=== PATIENT | male | born 1930 | race Caucasian/White ===

== ENCOUNTER 2016-11-22 16:51 | Emergency (ER) | payer OTHER ==
[~2016-11-22] VITALS: Ht 165.1 cm; Wt 63.5 kg
[~2016-11-22 16:51] MED LIST: ASPI-524 PO; ATEN-41 PO; BUPROPRION PO; FINA5TAB3 PO; FURO-149 PO; GABA300S PO; GLIPIZIDE PO; HYDR-1189 PO; LORA-258 PO; LOVA40TA75 PO; METR500T PO; OMEP20CA10 PO; TAMS-11 PO; TRAM50TA92 PO
[2016-11-22 17:09] VITALS: BP_SYST 162
[2016-11-22] MEDS ORDERED: LIDOCAINE 1% 10 MG/ML, 20 ML MDV INJ ONE (17:30)
[2016-11-22 18:07] VITALS: BP_SYST 143
== END 2016-11-22 18:07 | disposition home or self-care (01) ==
LOC: SED 16:51
DX: M71.522 Other bursitis, not elsewhere classified, left elbow (principal); E11.9 Type 2 diabetes mellitus without complications; I10 Essential (primary) hypertension; Z88.0 Allergy status to penicillin; Z88.5 Allergy status to narcotic agent; Z88.8 Allergy status to other drugs, medicaments and biological substances; Z85.46 Personal history of malignant neoplasm of prostate; Z95.2 Presence of prosthetic heart valve; Z79.82 Long term (current) use of aspirin
CPT/HCPCS: 20605; 99284; J2001

== ENCOUNTER 2017-11-15 07:59 | Emergency (ER) | payer OTHER ==
[~2017-11-15] VITALS: Ht 165.1 cm; Wt 63.5 kg
[2017-11-15 08:11] VITALS: BP_SYST 118
[2017-11-15] MEDS ORDERED: ACETAMINOPHEN 500 MG TABLET PO ONE (09:30)
[2017-11-15 10:02] VITALS: BP_SYST 149
== END 2017-11-15 10:02 | disposition home or self-care (01) ==
LOC: SED 07:59
DX: S01.01XA Laceration without foreign body of scalp, initial encounter (principal); S20.212A Contusion of left front wall of thorax, initial encounter; E11.9 Type 2 diabetes mellitus without complications; I10 Essential (primary) hypertension; Z86.79 Personal history of other diseases of the circulatory system; Z85.46 Personal history of malignant neoplasm of prostate; Z88.0 Allergy status to penicillin; Z88.8 Allergy status to other drugs, medicaments and biological substances; Z79.899 Other long term (current) drug therapy; W16.211A Fall in (into) filled bathtub causing drowning and submersion, initial encounter; Y93.E1 Activity, personal bathing and showering; Y92.091 Bathroom in other non-institutional residence as the place of occurrence of the external cause; Y99.8 Other external cause status
CPT/HCPCS: 70450-TC; 71100; 99284

== ENCOUNTER 2017-12-24 20:41 | Emergency (ER) | payer OTHER ==
[~2017-12-24] VITALS: Ht 170.2 cm; Wt 83.5 kg
[2017-12-24 20:48] VITALS: BP_SYST 110
[2017-12-24] MEDS ORDERED: NACL 0.9% 1,000 ML IV ONE (21:00)
[2017-12-24] MEDS ORDERED: DIPH-TET-PERTUS Vaccine 0.5 ML VIAL (ADACEL) I.M. ONE (21:00)
[2017-12-24 21:18] LABS: BASOPHILS % (AUTO) 0.7 % (0.0-2.0); EOSINOPHILS # (AUTO) 0.2 K/uL (0.0-0.4); EOSINOPHILS % (AUTO) 2.9 % (0.0-4.0); HEMATOCRIT 36.4 % (36-54); HEMOGLOBIN 11.9 g/dL (14.0-18.0); LYMPHOCYTES # (AUTO) 1.5 K/uL (1.0-5.5); LYMPHOCYTES % (AUTO) 27.1 % (20.5-51.5); MEAN CORPUSCULAR HEMOGLOBIN 31 pg (27-31); MEAN CORPUSCULAR HGB CONC 33 % (32-36); MEAN CORPUSCULAR VOLUME 94 fL (79.0-98.0); MONOCYTES # (AUTO) 0.4 K/uL (0.0-1.0); MONOCYTES % (AUTO) 7.7 % (1.7-9.3); NEUTROPHILS # (AUTO) 3.5 K/uL (1.8-7.7); NEUTROPHILS % (AUTO) 61.6 % (40.0-70.0); PLATELET COUNT (AUTO) 148 K/uL (130-430); RED BLOOD CELL COUNT(AUTO) 3.88 MIL/uL (4.2-6.2); RED CELL DISTRIBUTION WIDTH 12.5 % (9.0-15.0); WHITE BLOOD COUNT (AUTO) 5.6 K/uL (4.8-10.8)
[2017-12-24] MEDS ORDERED: DIPH-TET Vacc 0.5 ML VIAL I.M. ONE (21:30)
[2017-12-24 21:39] LABS: ANION GAP 7 (5-15); CALCIUM 8.4 mg/dL (8.4-11.0); CHLORIDE 102 mmol/L (98-107); CREATININE 1.54 mg/dL (0.55-1.30); GLUCOSE 88 mg/dL (70-99); POTASSIUM 3.9 mmol/L (3.5-5.1); SODIUM SERUM 137 mmol/L (136-145); UREA NITROGEN, BLOOD 18 mg/dL (8-21)
[2017-12-24 21:43] LABS: PROTHROMBIN TIME 10.2 SECS (9.5-12.5)
[2017-12-24 21:44] LABS: ALANINE AMINOTRANSFERASE 19 U/L (12-78); ALBUMIN 3.7 g/dL (3.4-4.8); ASPARTATE AMINOTRANSFERASE 13 U/L (10-37); TOTAL BILIRUBIN 0.6 mg/dL (0.0-1.0)
[2017-12-24 21:46] LABS: ALCOHOL, BLOOD < 3 mg/dL (<10)
[2017-12-24 23:09] LABS: BILIRUBIN,URINE NEGATIVE (NEGATIVE); BLOOD, URINE NEGATIVE (NEGATIVE); CLARITY/URINE CLEAR (CLEAR); COLOR,URINE YELLOW (YELLOW); GLUCOSE,URINE NEGATIVE (NEGATIVE); KETONES,URINE NEGATIVE (NEGATIVE); LEUKOCYTE ESTERASE ,URINE NEGATIVE (NEGATIVE); NITRITE, URINE NEGATIVE (NEGATIVE); PROTEIN URINE NEGATIVE (NEGATIVE); UROBILINOGEN,URINE 0.2 (0.2-1.0)
[2017-12-24 23:26] LABS: BENZODIAZEPINE, URINE POSITIVE (NEG <=150); OPIATE, URINE POSITIVE (NEG <=100)
[2017-12-24 23:27] LABS: BARBITURATE, URINE NEGATIVE (NEG <=200); CANNABINOID, URINE NEGATIVE (NEG <=50); COCAINE, URINE NEGATIVE (NEG <=150); METHAMPHETAMINES SCREEN,URINE NEGATIVE (NEG <=500); PHENCYCLIDINE SCREEN,URINE NEGATIVE (NEG <=25); UR TRICYCLIC ANTIDEPRESSANTS NEGATIVE (NEG <=300); URINE AMPHETAMINE NEGATIVE (NEG <=500); URINE METHADONE NEGATIVE (NEG <=200); URINE OXYCODONE SCREEN NEGATIVE (NEG <=100); URINE PROPOXYPHENE SCREEN NEGATIVE (NEG <=300)
[2017-12-24 23:48] VITALS: BP_SYST 121
== END 2017-12-24 23:48 | disposition home or self-care (01) ==
LOC: SED 20:41
DX: S50.312A Abrasion of left elbow, initial encounter (principal); R53.1 Weakness; E78.5 Hyperlipidemia, unspecified; Z85.46 Personal history of malignant neoplasm of prostate; E11.9 Type 2 diabetes mellitus without complications; I10 Essential (primary) hypertension; Z86.79 Personal history of other diseases of the circulatory system; Z88.5 Allergy status to narcotic agent; Z88.0 Allergy status to penicillin; Z88.8 Allergy status to other drugs, medicaments and biological substances; Z79.899 Other long term (current) drug therapy; W19.XXXA Unspecified fall, initial encounter; Y93.89 Activity, other specified; Y92.89 Other specified places as the place of occurrence of the external cause; Y99.8 Other external cause status
CPT/HCPCS: 36415; 70450; 71045; 80053; 80307; 81003; 84484; 85025; 85610; 85730; 90471; 90714; 93005; 99285; G0482; J7030

== ENCOUNTER 2018-06-03 14:04 | Emergency (ER) | payer OTHER ==
[~2018-06-03] VITALS: Ht 172.7 cm; Wt 79.8 kg
[2018-06-03 14:06] VITALS: BP_SYST 161
[2018-06-03 14:31] LABS: BASOPHILS % (AUTO) 0.5 % (0.0-2.0); EOSINOPHILS % (AUTO) 0.1 % (0.0-4.0); HEMATOCRIT 36.8 % (36-54); HEMOGLOBIN 12.4 g/dL (14.0-18.0); LYMPHOCYTES # (AUTO) 1.1 K/uL (1.0-5.5); LYMPHOCYTES % (AUTO) 12.2 % (20.5-51.5); MEAN CORPUSCULAR HEMOGLOBIN 32 pg (27-31); MEAN CORPUSCULAR HGB CONC 34 % (32-36); MEAN CORPUSCULAR VOLUME 95 fL (79.0-98.0); MONOCYTES # (AUTO) 0.5 K/uL (0.0-1.0); MONOCYTES % (AUTO) 5.5 % (1.7-9.3); NEUTROPHILS # (AUTO) 7.6 K/uL (1.8-7.7); NEUTROPHILS % (AUTO) 81.7 % (40.0-70.0); PLATELET COUNT (AUTO) 213 K/uL (130-430); RED BLOOD CELL COUNT(AUTO) 3.86 MIL/uL (4.2-6.2); RED CELL DISTRIBUTION WIDTH 12.4 % (9.0-15.0); WHITE BLOOD COUNT (AUTO) 9.2 K/uL (4.8-10.8)
[2018-06-03 14:43] LABS: PROTHROMBIN TIME 10.7 SECS (9.5-12.5)
[2018-06-03 14:46] LABS: ANION GAP 11 (5-15); CALCIUM 8.6 mg/dL (8.4-11.0); CHLORIDE 99 mmol/L (98-107); CREATININE 1.34 mg/dL (0.55-1.30); GLUCOSE 136 mg/dL (70-99); POTASSIUM 3.4 mmol/L (3.5-5.1); SODIUM SERUM 137 mmol/L (136-145); UREA NITROGEN, BLOOD 17 mg/dL (8-21)
[2018-06-03 14:52] LABS: ALANINE AMINOTRANSFERASE 20 U/L (12-78); ALBUMIN 3.7 g/dL (3.4-4.8); ASPARTATE AMINOTRANSFERASE 17 U/L (10-37); TOTAL BILIRUBIN 0.9 mg/dL (0.0-1.0)
[2018-06-03 15:04] LABS: BILIRUBIN,URINE NEGATIVE (NEGATIVE); BLOOD, URINE NEGATIVE (NEGATIVE); CLARITY/URINE CLEAR (CLEAR); COLOR,URINE YELLOW (YELLOW); GLUCOSE,URINE NEGATIVE (NEGATIVE); KETONES,URINE NEGATIVE (NEGATIVE); LEUKOCYTE ESTERASE ,URINE NEGATIVE (NEGATIVE); NITRITE, URINE NEGATIVE (NEGATIVE); PROTEIN URINE NEGATIVE (NEGATIVE); UROBILINOGEN,URINE 0.2 (0.2-1.0)
[2018-06-03 18:37] VITALS: BP_SYST 179
== END 2018-06-03 18:37 | disposition home or self-care (01) ==
LOC: SED 14:04
DX: R41.82 Altered mental status, unspecified (principal); E11.9 Type 2 diabetes mellitus without complications; E78.5 Hyperlipidemia, unspecified; I10 Essential (primary) hypertension; Z85.46 Personal history of malignant neoplasm of prostate; Z85.820 Personal history of malignant melanoma of skin; Z86.79 Personal history of other diseases of the circulatory system; Z95.1 Presence of aortocoronary bypass graft; Z88.0 Allergy status to penicillin; Z88.5 Allergy status to narcotic agent; Z88.8 Allergy status to other drugs, medicaments and biological substances; Z79.899 Other long term (current) drug therapy
CPT/HCPCS: 36415; 70450-TC; 71045; 80053; 81003; 83605; 84484; 85025; 85610-TC; 85730-TC; 87040-TC; 87086; 93005; 99284

== ENCOUNTER 2018-06-10 18:37 | Emergency (ER) | payer OTHER ==
[~2018-06-10] VITALS: Ht 172.7 cm; Wt 61.2 kg
[2018-06-10 18:41] VITALS: BP_SYST 137
[2018-06-10] MEDS ORDERED: NACL 0.9% 1,000 ML IV ONE (18:45)
[2018-06-10] MEDS ORDERED: ONDANSETRON HCL 4 MG/2 ML VIAL IVP ONE (18:45)
[2018-06-10] MEDS ORDERED: DICYCLOMINE HCL 20 MG/2 ML AMP IM ONE (18:45)
[2018-06-10 19:10] LABS: BASOPHILS % (AUTO) 0.5 % (0.0-2.0); EOSINOPHILS # (AUTO) 0.2 K/uL (0.0-0.4); EOSINOPHILS % (AUTO) 3.2 % (0.0-4.0); HEMATOCRIT 39.2 % (36-54); HEMOGLOBIN 13.1 g/dL (14.0-18.0); LYMPHOCYTES % (AUTO) 13.4 % (20.5-51.5); MEAN CORPUSCULAR HEMOGLOBIN 32 pg (27-31); MEAN CORPUSCULAR HGB CONC 33 % (32-36); MEAN CORPUSCULAR VOLUME 94 fL (79.0-98.0); MONOCYTES # (AUTO) 0.5 K/uL (0.0-1.0); NEUTROPHILS # (AUTO) 5.6 K/uL (1.8-7.7); NEUTROPHILS % (AUTO) 75.9 % (40.0-70.0); PLATELET COUNT (AUTO) 184 K/uL (130-430); RED BLOOD CELL COUNT(AUTO) 4.17 MIL/uL (4.2-6.2); RED CELL DISTRIBUTION WIDTH 12.6 % (9.0-15.0); WHITE BLOOD COUNT (AUTO) 7.3 K/uL (4.8-10.8)
[2018-06-10 19:20] LABS: ANION GAP 9 (5-15); CALCIUM 8.4 mg/dL (8.4-11.0); CHLORIDE 98 mmol/L (98-107); CREATININE 1.26 mg/dL (0.55-1.30); GLUCOSE 145 mg/dL (70-99); POTASSIUM 3.5 mmol/L (3.5-5.1); SODIUM SERUM 136 mmol/L (136-145); UREA NITROGEN, BLOOD 11 mg/dL (8-21)
[2018-06-10 19:24] LABS: ALANINE AMINOTRANSFERASE 19 U/L (12-78); ALBUMIN 3.9 g/dL (3.4-4.8); ASPARTATE AMINOTRANSFERASE 16 U/L (10-37); TOTAL BILIRUBIN 0.6 mg/dL (0.0-1.0)
[2018-06-10 19:32] LABS: BILIRUBIN,URINE NEGATIVE (NEGATIVE); BLOOD, URINE 3+ (NEGATIVE); CLARITY/URINE CLEAR (CLEAR); COLOR,URINE YELLOW (YELLOW); GLUCOSE,URINE NEGATIVE (NEGATIVE); KETONES,URINE NEGATIVE (NEGATIVE); LEUKOCYTE ESTERASE ,URINE NEGATIVE (NEGATIVE); NITRITE, URINE NEGATIVE (NEGATIVE); PROTEIN URINE NEGATIVE (NEGATIVE); UROBILINOGEN,URINE 0.2 (0.2-1.0)
[2018-06-10 19:39] LABS: BACTERIA,URINE RARE /HPF (None Seen); RBC,URINE 20-50 /HPF (0-3); WBC,URINE 0-3 /HPF (0-3)
[2018-06-10] MEDS ORDERED: HYDROcodone/ACETAMIN 5-325 MG TAB (NORCO/ VICODIN) PO ONE (22:00)
[2018-06-10] MEDS ORDERED: traMADol HCL HCL 50 MG TABLET (ULTRAM) PO ONE (22:00)
[2018-06-10 22:24] LABS: FREE T4 (FREE THYROXINE) 0.6 ng/dL (0.6-1.6); THYROID STIMULATING HORMONE 2.71 uIu/mL (0.34-4.82)
[2018-06-10] MEDS ORDERED: LORazepam 1 MG TABLET PO ONE (23:00)
[2018-06-10] MEDS ORDERED: PRAV40TA PO (23:26)
[2018-06-11 01:36] VITALS: BP_SYST 160
== END 2018-06-11 01:34 | disposition home or self-care (01) ==
LOC: SED 18:37
DX: R10.84 Generalized abdominal pain (principal); R19.7 Diarrhea, unspecified; F32.9 Major depressive disorder, single episode, unspecified; F41.9 Anxiety disorder, unspecified; K21.9 Gastro-esophageal reflux disease without esophagitis; E11.9 Type 2 diabetes mellitus without complications; I10 Essential (primary) hypertension; Z86.79 Personal history of other diseases of the circulatory system; Z85.46 Personal history of malignant neoplasm of prostate; Z85.820 Personal history of malignant melanoma of skin; Z88.0 Allergy status to penicillin; Z88.5 Allergy status to narcotic agent; Z88.8 Allergy status to other drugs, medicaments and biological substances; Z79.899 Other long term (current) drug therapy; Z86.19 Personal history of other infectious and parasitic diseases
CPT/HCPCS: 36415; 74176; 80053; 81000; 82272; 83605; 84439; 84443; 85025; 87040; 87086; 93005; 96361; 96372; 96374; 99284; J0500; J2405; J7030

== ENCOUNTER 2018-06-17 08:50 | Emergency (ER) | payer OTHER ==
[~2018-06-17] VITALS: Ht 167.6 cm; Wt 61.2 kg
[2018-06-17 08:50] VITALS: BP_SYST 159
[~2018-06-17 08:50] MED LIST changes: -FINA5TAB3 PO; -LOVA40TA75 PO; -METR500T PO; +PRAV40TA PO
[2018-06-17] MEDS: BACITRACIN 1 GM OINT TP ONE (09:30)
[2018-06-17] MEDS: NACL 0.9% 1,000 ML IV ONE (09:30)
[2018-06-17] MEDS: LIDOCAINE 1% 10 MG/ML, 20 ML MDV IJ ONE (09:30)
[2018-06-17] MEDS: ASPIRIN 81 MG TAB.CHEW PO ONE (09:30)
[2018-06-17 09:47] LABS: BASOPHILS % (AUTO) 0.5 % (0.0-2.0); EOSINOPHILS # (AUTO) 0.4 K/uL (0.0-0.4); EOSINOPHILS % (AUTO) 5.7 % (0.0-4.0); HEMATOCRIT 37.7 % (36-54); HEMOGLOBIN 12.3 g/dL (14.0-18.0); LYMPHOCYTES # (AUTO) 1.5 K/uL (1.0-5.5); LYMPHOCYTES % (AUTO) 23.3 % (20.5-51.5); MEAN CORPUSCULAR HEMOGLOBIN 31 pg (27-31); MEAN CORPUSCULAR HGB CONC 33 % (32-36); MEAN CORPUSCULAR VOLUME 95 fL (79.0-98.0); MONOCYTES # (AUTO) 0.6 K/uL (0.0-1.0); MONOCYTES % (AUTO) 8.8 % (1.7-9.3); NEUTROPHILS # (AUTO) 3.9 K/uL (1.8-7.7); NEUTROPHILS % (AUTO) 61.7 % (40.0-70.0); PLATELET COUNT (AUTO) 171 K/uL (130-430); RED BLOOD CELL COUNT(AUTO) 3.97 MIL/uL (4.2-6.2); WHITE BLOOD COUNT (AUTO) 6.4 K/uL (4.8-10.8)
[2018-06-17 09:56] LABS: ANION GAP 8 (5-15); CALCIUM 8.3 mg/dL (8.4-11.0); CHLORIDE 104 mmol/L (98-107); CREATININE 1.31 mg/dL (0.55-1.30); GLUCOSE 110 mg/dL (70-99); POTASSIUM 3.9 mmol/L (3.5-5.1); SODIUM SERUM 141 mmol/L (136-145); UREA NITROGEN, BLOOD 19 mg/dL (8-21)
[2018-06-17 09:59] LABS: PROTHROMBIN TIME 10.4 SECS (9.5-12.5)
[2018-06-17 10:00] LABS: ALANINE AMINOTRANSFERASE 19 U/L (12-78); ALBUMIN 3.6 g/dL (3.4-4.8); ASPARTATE AMINOTRANSFERASE 12 U/L (10-37); LIPASE 98 U/L (73-393); TOTAL BILIRUBIN 0.6 mg/dL (0.0-1.0)
[2018-06-17] MEDS: MORPHINE 4 MG/ML INJ. SYRINGE IVP ONE (10:24)
[2018-06-17 11:22] VITALS: BP_SYST 153
== END 2018-06-17 11:22 | disposition home or self-care (01) ==
LOC: SED 08:50
DX: S01.01XA Laceration without foreign body of scalp, initial encounter (principal); J45.909 Unspecified asthma, uncomplicated; K21.9 Gastro-esophageal reflux disease without esophagitis; E78.5 Hyperlipidemia, unspecified; E11.9 Type 2 diabetes mellitus without complications; I10 Essential (primary) hypertension; Z86.79 Personal history of other diseases of the circulatory system; Z85.820 Personal history of malignant melanoma of skin; Z85.46 Personal history of malignant neoplasm of prostate; Z88.0 Allergy status to penicillin; Z88.5 Allergy status to narcotic agent; Z88.8 Allergy status to other drugs, medicaments and biological substances; Z79.899 Other long term (current) drug therapy; W18.12XA Fall from or off toilet with subsequent striking against object, initial encounter; Y93.89 Activity, other specified; Y92.89 Other specified places as the place of occurrence of the external cause; Y99.8 Other external cause status
CPT/HCPCS: 12004; 36415; 70450; 71045; 80053; 82550; 83690; 84484; 85025; 85610; 85730; 93005; 96374; 99284; J2270; J7030

== ENCOUNTER 2018-06-20 22:54 | Inpatient (IN) | payer OTHER ==
[~2018-06-20] VITALS: Ht 167.6 cm; Wt 67.1 kg
[2018-06-20 22:54] VITALS: BP_SYST 163
--- NOTE | 2018-06-20 22:54 | NUR ---
Placed in room 8 . Placed on vp celebrity services, blood pressure machine and pulse oximeter. To gown for exam. Side rails up. Report given from DOMINIC Moreira.
--- NOTE | 2018-06-20 22:54 | NUR ---
Note jose a in ED - 06/21/18 at 0659 by [email or web address] Patient to [facility] 8 to [facility] for evaluation. Side rails up. Report given from DOMINIC Moreira.
--- NOTE | 2018-06-20 23:00 | NUR ---
Pt came into the ed for shaking, chills and vomiting. Pts daughter reports that he has also been having watery diarrhea. Pt came in to the ED on 06/17 for a laceration on the L side of his scalp and was stapled. Ct came back normal. Pts daughter says that he was on daily ASA and no other blood thinners. Hx of dementia, diabetes, and chronic pain. Reported that pt is on [place]. Pts daughter says that other residents at [facility] are also sick with vomiting and diarrhea, however, pt is the only one with fever. Denies any other complaints/injuries noted. WIll cont. to monitor.
--- NOTE | 2018-06-20 23:05 | NUR ---
ER at bedside examining patient.
[2018-06-20] MEDS ORDERED: KETOROLAC TROMETHAMINE 15 MG VIAL IVP ONE (23:15)
[2018-06-20] MEDS ORDERED: NS 500 ML IV ONE (23:15)
[2018-06-20] MEDS ORDERED: ONDANSETRON HCL 4 MG/2 ML VIAL IVP ONE (23:45)
--- NOTE | 2018-06-20 23:53 | NUR ---
Pt medicated with toradol IVP, zofran IVP, and fluids administered per MD order. Tolerated well. Will cont. to monitor.
--- NOTE | 2018-06-20 23:54 | NUR ---
Note jose a in ED - 06/21/18 at 0656 by [email or web address] Patient to [facility] [address] [facility] for evaluation. Side rails up. Report given from DOMINIC Moreira.
[2018-06-21] VITALS (22 sets, daily range): BP systolic 93–146
[2018-06-21 00:10] LABS: ANION GAP 13 (5-15); CALCIUM 8.8 mg/dL (8.4-11.0); CHLORIDE 100 mmol/L (98-107); CREATININE 1.35 mg/dL (0.55-1.30); GLUCOSE 227 mg/dL (70-99); POTASSIUM 4.4 mmol/L (3.5-5.1); SODIUM SERUM 140 mmol/L (136-145); UREA NITROGEN, BLOOD 21 mg/dL (8-21)
[2018-06-21 00:15] LABS: ALANINE AMINOTRANSFERASE 21 U/L (12-78); ALBUMIN 3.8 g/dL (3.4-4.8); ASPARTATE AMINOTRANSFERASE 20 U/L (10-37); TOTAL BILIRUBIN 1.1 mg/dL (0.0-1.0)
[2018-06-21 00:19] LABS: HEMATOCRIT 46.6 % (36-54); HEMOGLOBIN 15.3 g/dL (14.0-18.0); MEAN CORPUSCULAR HEMOGLOBIN 31 pg (27-31); MEAN CORPUSCULAR HGB CONC 33 % (32-36); MEAN CORPUSCULAR VOLUME 94 fL (79.0-98.0); PLATELET COUNT (AUTO) 201 K/uL (130-430); RED BLOOD CELL COUNT(AUTO) 4.95 MIL/uL (4.2-6.2); RED CELL DISTRIBUTION WIDTH 12.6 % (9.0-15.0); WHITE BLOOD COUNT (AUTO) 8.8 K/uL (4.8-10.8)
[2018-06-21 00:20] LABS: BASOPHILS # (AUTO) 0.2 K/uL (0.0-0.2); LYMPHOCYTES # (AUTO) 0.2 K/uL (1.0-5.5); LYMPHOCYTES % (AUTO) 2.7 % (20.5-51.5); MONOCYTES # (AUTO) 0.1 K/uL (0.0-1.0); MONOCYTES % (AUTO) 1.7 % (1.7-9.3); NEUTROPHILS # (AUTO) 8.3 K/uL (1.8-7.7); NEUTROPHILS % (AUTO) 93.6 % (40.0-70.0)
[2018-06-21 00:21] LABS: PROTHROMBIN TIME 10.5 SECS (9.5-12.5)
[2018-06-21] MEDS ORDERED: ASPIRIN 81 MG TAB.CHEW PO ONE (00:30)
[2018-06-21] MEDS ORDERED: LEVOFLOXACIN 500 MG/D5W 100 ML IV ONE (00:30)
[2018-06-21] MEDS ORDERED: AMIODARONE HCL 150 MG in D5W 97 ML IV ONE (00:30)
[2018-06-21] MEDS ORDERED: AMIODARONE HCL 900 MG in D5W 482 ML IV ONE (00:30)
--- NOTE | 2018-06-21 00:34 | NUR ---
Pt shows vtach on monitor. ER MD Dr. Wesley made aware. Pt started on amiodarone bolus 150 mg. Per md order. Tolerating well WIll cont. to monitor. 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
--- NOTE | 2018-06-21 00:36 | NUR ---
d/c nasal canal, per Dr. Wesley's order. Pt placed on 15 L non-rebreather. O2 saturation currently at 99%.
[2018-06-21] MEDS ORDERED: AMIODARONE HCL 900 MG/18 ML VIAL IV ONE (00:40)
[2018-06-21] MEDS ORDERED: AMIODARONE HCL 150 MG/3ML VIAL ONE (00:41)
--- NOTE | 2018-06-21 00:44 | NUR ---
Pt started on amio drip at 1mg/1min per MD order. Tolerating well. WIll cont. to monitor. Pt on ekg monitor.
--- NOTE | 2018-06-21 00:49 | NUR ---
Pt medicated with ASA po per MD order. Tolerated well. Will cont. to monitor.
[2018-06-21 00:59] LABS: BILIRUBIN,URINE NEGATIVE (NEGATIVE); BLOOD, URINE NEGATIVE (NEGATIVE); CLARITY/URINE CLEAR (CLEAR); COLOR,URINE YELLOW (YELLOW); GLUCOSE,URINE NEGATIVE (NEGATIVE); KETONES,URINE 2+ (NEGATIVE); LEUKOCYTE ESTERASE ,URINE NEGATIVE (NEGATIVE); NITRITE, URINE NEGATIVE (NEGATIVE); PROTEIN URINE NEGATIVE (NEGATIVE); UROBILINOGEN,URINE 0.2 (0.2-1.0)
[2018-06-21] MEDS: 0.45% NACL 1,000 ML IV SCH ×2 (01:00→08:59)
[2018-06-21] MEDS ORDERED: METOPROLOL TARTRATE 25 MG TABLET PO ONE (01:00)
[2018-06-21] MEDS ORDERED: NITROGLYCERIN 0.4 MG TAB.SUBL SL ONE (01:00)
--- NOTE | 2018-06-21 01:10 | NUR ---
Patient will be admitted to care of Dr. Vargas. Admitted to ICU unit. Will go to room ICU 4. Belongings list completed. Summary report printed. Report will be given at bedside.
[2018-06-21] MEDS ORDERED: DIPHENHYDRAMINE INJ 50 MG/ML VIAL IVP ONE (01:15)
[2018-06-21] MEDS ORDERED: NACL 0.9% 1,000 ML IV ONE ×2 (01:30→09:45)
--- NOTE | 2018-06-21 01:30 | NUR ---
Transfer to ICU via ACLS protocol. Licensed nurse present. IV present no signs or symptoms of infiltration.
--- NOTE | 2018-06-21 01:30 | NUR ---
ADMISSION NOTE Received patient from ER via gurney. Pt is on Amiodarone drip at 1mg/hr infusing well in LFA without any signs of infiltration at the IV site. Oxygen is on via Non-rebreather mask. No respiratory distress noted. Patient is awake and oriented to his name only. Patient oriented to hospital room, call light, toileting, pain management and safety. Patient informed that this RN will be his nurse and that his room number is ICU 8. Personal belongings checked and Belongings List documented. Call light within reach and bed alarm on. Addendum: 06/21/18 at 0238 by Gifty Garcia RN Correction: Amiodarone drip is infusing at 1mg/min (33.3ml/hr).
[2018-06-21] MEDS: ACETAMINOPHEN 325 MG TABLET PO PRN (02:16)
--- NOTE | 2018-06-21 02:16 | NUR ---
Fever Temp 100.7 and Tylenol 650mg was given po.
--- NOTE | 2018-06-21 03:50 | NUR ---
Influenza Vaccine Status Pt's daughter Marguerite Lazo called for update. She stated pt received Flu Vaccine in March or April 2018. She stated [facility] went to [facility] and gave all the residents Flu Vaccine.
[2018-06-21] MEDS ORDERED: metroNIDAZOLE 500 mg/NS 100 ML IV ONE (04:30)
--- NOTE | 2018-06-21 05:30 | NUR ---
Confusion Pt is attempting to get out of bed and is very confused. Pt was instructed to stay in bed and pt stayed in bed temporarily. Amiodarone drip is infusing well at 1mg/min (33.33ml/hr) in LFA. IVF of NS is infusing well in RFA at 175ml/hr. Fall and safety precautions are in place.
[2018-06-21 06:24] LABS: BASOPHILS % (AUTO) 0.2 % (0.0-2.0); EOSINOPHILS % (AUTO) 1.3 % (0.0-4.0); HEMATOCRIT 39.6 % (36-54); HEMOGLOBIN 13.1 g/dL (14.0-18.0); LYMPHOCYTES # (AUTO) 0.2 K/uL (1.0-5.5); LYMPHOCYTES % (AUTO) 6.3 % (20.5-51.5); MEAN CORPUSCULAR HEMOGLOBIN 32 pg (27-31); MEAN CORPUSCULAR HGB CONC 33 % (32-36); MEAN CORPUSCULAR VOLUME 95 fL (79.0-98.0); MONOCYTES # (AUTO) 0.1 K/uL (0.0-1.0); MONOCYTES % (AUTO) 3.4 % (1.7-9.3); NEUTROPHILS # (AUTO) 3.2 K/uL (1.8-7.7); PLATELET COUNT (AUTO) 167 K/uL (130-430); RED BLOOD CELL COUNT(AUTO) 4.16 MIL/uL (4.2-6.2); RED CELL DISTRIBUTION WIDTH 12.6 % (9.0-15.0); WHITE BLOOD COUNT (AUTO) 3.5 K/uL (4.8-10.8)
--- NOTE | 2018-06-21 06:30 | NUR ---
Confusion Pt remains very confused and made several attempts to get out of bed, despite attending to all his needs. Charge nurse Lyn paged Dr. Vargas. IVF and Amiodarone drip are infusing well.
--- NOTE | 2018-06-21 06:42 | NUR ---
Amiodarone Titration Amiodarone rate was decreased from 1mg/min (33.33ml/hr) to 0.5mg/min (16.66ml/hr) 6 hours after initiation, per protocol. Pt is still attempting to get out of bed. Awaiting call back from Dr. Vargas.
[2018-06-21] MEDS ORDERED: HALOPERIDOL LACTATE 5 MG/ML VIAL IM ONE (06:45)
[2018-06-21 06:49] LABS: ANION GAP 15 (5-15); CHLORIDE 104 mmol/L (98-107); CREATININE 1.25 mg/dL (0.55-1.30); GLUCOSE 145 mg/dL (70-99); POTASSIUM 3.4 mmol/L (3.5-5.1); SODIUM SERUM 141 mmol/L (136-145); UREA NITROGEN, BLOOD 24 mg/dL (8-21)
--- NOTE | 2018-06-21 06:49 | NUR ---
Restraint initiation Charge nurse Lyn spoke with Dr. Vargas who gave orders for wrist restraints and IM Haldol. Will notify pt's daughter.
[2018-06-21 06:51] LABS: ALANINE AMINOTRANSFERASE 15 U/L (12-78); ALBUMIN 2.8 g/dL (3.4-4.8); ASPARTATE AMINOTRANSFERASE 20 U/L (10-37); TOTAL BILIRUBIN 1.3 mg/dL (0.0-1.0)
[2018-06-21] MEDS: HALOPERIDOL LACTATE 5 MG/ML VIAL ONE ×2 (07:02→07:06)
[2018-06-21] MEDS: metroNIDAZOLE 500 mg/NS 100 ML IV SCH ×3 (07:05→22:30)
--- NOTE | 2018-06-21 07:05 | NUR ---
Report Bedside report was given to day shift nurse. IM Haldol was given to pt by day shift charge nurse Kathy.
--- NOTE | 2018-06-21 07:30 | NUR ---
AM REPORT: RECEIVED REPORT FROM NIGHT NURSE ESTEFANIA,PATIENT RESTLESS,BILATERAL SOFT WRIST RESTRAINT ON ORDERED.ON NON-REBREATHER MASK AT 15L/MIN,GOOD SATURATION.AMIODARONE DRIP AT 0.5MG/MIN TO TITRATE HR AT LEFT FOREARM.NS RUNNING AT RIGHT FOREARM INTACT.CONTINUE TO MONITOR .
[2018-06-21] MEDS: LevALBUTEROL HCL 1.25 MG/0.5 ML *CONC.* VIAL.NEB (XOPENEX CONC.) INH SCH ×3 (07:50→20:29)
--- NOTE | 2018-06-21 08:00 | NUR ---
CHANGED O2 TO NASAL CANNULA: RT CHANGED O2 TO NASAL CANNULA AT 2L/MIN,WITH GOOD SATURATION. NO DISTRESS.
[2018-06-21] MEDS ORDERED: METOPROLOL TARTRATE 25 MG TABLET PO SCH (09:00)
[2018-06-21] MEDS ORDERED: ENOXAPARIN SODIUM 40 MG/0.4 ML SYRINGE SUBCUT ONE (09:00)
--- NOTE | 2018-06-21 09:30 | NUR ---
Family Notification Pt's daughter came to visit pt and was informed of reasons for wrist restraints.
[2018-06-21 09:31] LABS: NEUTROPHILS % (AUTO) 88.8 % (40.0-70.0)
--- NOTE | 2018-06-21 09:55 | NUR ---
CARDIO ROUNDS: DR CANNON SAW THE PATIENT AND SPOKE TO DAUGHTER AT THE BEDSIDE,UPDATES GIVEN BY CARDIO.
--- NOTE | 2018-06-21 10:08 | NUR ---
Nutrition Update Driss Scale 14 noted. Pt admitted for pneumonia. Diet: CCHO, mechanical soft BMI: 20.9 kg/m2 RD to follow per nutrition care standards.
--- NOTE | 2018-06-21 10:19 | NUR ---
NS IV BOLUS: NS 1 LITER IV BOLUS GIVEN ORDERED.
[2018-06-21] MEDS ORDERED: ONDANSETRON HCL 4 MG/2 ML VIAL IVP PRN (11:00)
[2018-06-21] MEDS: HYDROmorphone 1 MG INJ. 1 MG/ML AMPUL IVP PRN ×3 (11:00→22:31)
--- NOTE | 2018-06-21 11:00 | NUR ---
PAIN MEDS: C/O GENERALIZED PAIN AND DUE IV PAIN MEDS GIVEN PER REQUEST. NO UNTOWARD MANIFESTATIONS NOTED THIS TIME.
--- NOTE | 2018-06-21 11:30 | NUR ---
BLOOD SUGAR: BLOOD SUGAR=96MG/DL.NO INSULIN GIVEN PER SLIDING SCALE.
--- NOTE | 2018-06-21 12:15 | NUR ---
TRANSFER CARE: REPORT GIVEN TO PERLA FOR TRANSFER OF CARE.PATIENT IN STABLE CONDITION. AMIODARONE DRIP AT 0.5MG/MIN ORDERED.BILATERAL SOFT WRIST RESTRAINT ON.CONTINUE TO MONITOR.
--- NOTE | 2018-06-21 12:50 | NUR ---
LOC. PT PULLED OUT HIS IV FROM RIGHT ARM EVEN WITH WRIST RESTRAINTS ON, IV FROM LEFT FOREARM INFILTRATED AND D/CD, NEW IV INSERTED IN RIGHT FOREARM WITH 20 GAUGE AND 22 GAUGE CATHETERS, GOOD BLOOD RETURN NOTED.
[2018-06-21] MEDS: NACL 0.9% 1,000 ML IV SCH ×2 (13:33→21:08)
--- NOTE | 2018-06-21 14:00 | NUR ---
Flor PT RESTLESS, PULLING DOWN HIS [facility] GOWN TO HIS THIGHS, BENDING HIS LEGS AND ATTEMPTING TO GET OFF THE BED, REPOSITIONED PT TO THE MIDDLE OF HIS BED, CHECKED FOR INCONTINENCE, PT VOIDED, PERINEAL HYGIENE RENDERED.
--- NOTE | 2018-06-21 15:15 | NUR ---
PICC. NEW PICC IN PLACE INTO RIGHT UPPER ARM, ALL IV TUBINGS CHANGED, TRANSFERRED ALL IV INFUSION INTO NEW PORTS.
--- NOTE | 2018-06-21 16:00 | NUR ---
PAIN. PT GRIMACING, HIS DAUGHTER AT BEDSIDE, SUGGESTED TO MEDICATE HER FATHER, HELPED PT TO REPOSITION HIM IN BED, MOANED IN PAIN, BROUGHT IN DILAUDID 0.5 MG IVP TO REDUCE HIS PAIN.
--- NOTE | 2018-06-21 16:30 | NUR ---
REST. DILAUDID EFFECTIVE.
[2018-06-21] MEDS: LORazepam 1 MG TABLET PO PRN ×2 (18:12→23:27)
--- NOTE | 2018-06-21 18:12 | NUR ---
ANXIETY. PT'S DAUGHTER YASMANY CAME IN, SHE STATED THAT HER FATHER HAD BEEN ON PAIN MEDICATION. PATIENT AGITATED AT THIS HOUR, TAKING OFF HIS GOWN, AND BLANKET, DISCOURAGED PT ON HIS BEHAVIOR, STAYED WITH PT AND SUPERVISED AT DINNER, WITH SMALL APPETITE, MEDICATED WITH ATIVAN 0.5 MG, PT ABLE TO TAKE HIS MEDS WITHOUT PROBLEM.
--- NOTE | 2018-06-21 19:25 | NUR ---
Pt is awake but very confused. O2 via NC @ 2L. SPO2 above 95%. SR noted on monitor. Skin intact. PICC line to GLADYS with IVF infusing, no signs of infiltration noted. Bilateral wrist restraints noted with no skin issues. Call light within reach, safety precautions in place. Will continue to monitor.
--- NOTE | 2018-06-21 20:00 | NUR ---
Pts family at bedside, aware of POC.
--- NOTE | 2018-06-21 20:30 | NUR ---
CALLED TO SEE IF AMIODARONE DRIP NEEDS TO BE CONTINUED, ORDERS RECEIVED TO START PO AMIODARONE NOW AND DC DRIP 2 HOURS AFTER PO GIVEN.
[2018-06-21] MEDS ORDERED: PREDEYE1% OP (20:54)
[2018-06-21] MEDS: METOPROLOL TARTRATE 25 MG TABLET PO SCH (21:07)
[2018-06-21] MEDS: AMIODARONE HCL 200 MG TABLET PO SCH (21:07)
[2018-06-21] MEDS: prednisoLONE 1% OPHTHALMIC SUSPN 5 ML OP SCH (22:31)
--- NOTE | 2018-06-21 23:26 | NUR ---
consultation for called , spoke with GOVIND AT THE EXCHANGE.
[2018-06-22] VITALS (23 sets, daily range): BP systolic 98–170
[2018-06-22] MEDS ORDERED: metroNIDAZOLE 500 mg/NS 100 ML IV ONE (00:47)
[2018-06-22] MEDS: LevALBUTEROL HCL 1.25 MG/0.5 ML *CONC.* VIAL.NEB (XOPENEX CONC.) INH SCH ×4 (01:53→20:17)
[2018-06-22] MEDS: HYDROmorphone 1 MG INJ. 1 MG/ML AMPUL IVP PRN ×4 (02:34→23:28)
[2018-06-22] MEDS: NACL 0.9% 1,000 ML IV SCH ×3 (04:30→16:19)
[2018-06-22] MEDS: metroNIDAZOLE 500 mg/NS 100 ML IV SCH ×2 (06:20→14:07)
[2018-06-22 07:14] LABS: HEMATOCRIT 34.2 % (36-54); HEMOGLOBIN 11.7 g/dL (14.0-18.0); MEAN CORPUSCULAR HEMOGLOBIN 33 pg (27-31); MEAN CORPUSCULAR HGB CONC 34 % (32-36); MEAN CORPUSCULAR VOLUME 96 fL (79.0-98.0); PLATELET COUNT (AUTO) 137 K/uL (130-430); RED BLOOD CELL COUNT(AUTO) 3.57 MIL/uL (4.2-6.2); RED CELL DISTRIBUTION WIDTH 12.6 % (9.0-15.0)
--- NOTE | 2018-06-22 07:15 | NUR ---
ENDORSEMENT Pt care endorsed to DAYSHIFT RN at bedside using nursing SBAR.
[2018-06-22 07:20] LABS: ALANINE AMINOTRANSFERASE 18 U/L (12-78); ALBUMIN 2.4 g/dL (3.4-4.8); AMYLASE 30 U/L (0-100); ANION GAP 11 (5-15); ASPARTATE AMINOTRANSFERASE 30 U/L (10-37); CALCIUM 7.5 mg/dL (8.4-11.0); CHLORIDE 107 mmol/L (98-107); CHOLESTEROL 84 mg/dL (<200); CREATININE 1.05 mg/dL (0.55-1.30); GLUCOSE 117 mg/dL (70-99); HDL CHOLESTEROL 45 mg/dL (>45); LDL CHOLESTEROL 26 mg/dL (<100); LIPASE 47 U/L (73-393); PHOSPHORUS 1.9 mg/dL (2.7-4.5); POTASSIUM 3.3 mmol/L (3.5-5.1); SODIUM SERUM 138 mmol/L (136-145); THYROID STIMULATING HORMONE 4.32 uIu/mL (0.34-4.82); TOTAL BILIRUBIN 0.7 mg/dL (0.0-1.0); TRIGLYCERIDES 67 mg/dL (30-150); UREA NITROGEN, BLOOD 26 mg/dL (8-21)
[2018-06-22 07:24] LABS: WHITE BLOOD COUNT (AUTO) 11.6 K/uL (4.8-10.8)
--- NOTE | 2018-06-22 08:00 | NUR ---
RN OPENING NOTE PATIENT RESTING ON BED, CONFUSED. PATIENT WAS ASSESSED, VITAL SIGNS SHOWS ELEVATED BLOOD PRESSURE, PATIENT IS ON O2 NASAL CANULA. WILL GIVE THE PATIENT HIS BLOOD PRESSURE MEDICATIONS, PATIENT RESTRAINTS WAS RELEASED FOR 10 MIN, PATIENT BED AT LOW POSITION AND CALL LIGHT WITHIN REACH, WILL CONTINUE TO MONITOR.
[2018-06-22] MEDS: AMIODARONE HCL 200 MG TABLET PO SCH ×2 (08:55→21:13)
[2018-06-22] MEDS: METOPROLOL TARTRATE 25 MG TABLET PO SCH ×2 (08:56→21:14)
[2018-06-22] MEDS: prednisoLONE 1% OPHTHALMIC SUSPN 5 ML OP SCH ×4 (08:57→21:15)
[2018-06-22 09:06] LABS: ATYPICAL LYMPHOCYTES % 0 % (0-0); BAND % (MANUAL) 46 % (0-6); BASOPHILS % (MANUAL) 0 % (0-2); EOSINOPHILS % (MANUAL) 0 % (0-7); LYMPHOCYTES % (MANUAL) 7 % (20-46); MONOCYTES % (MANUAL) 9 % (0-11)
--- NOTE | 2018-06-22 09:30 | NUR ---
Dr Parisi Consult called. Spoke with Amy / joseph
--- NOTE | 2018-06-22 10:00 | NUR ---
RN NOTE PATIENT BLOOD PRESSURE IS GETTING DOWN TO HIGH NORMAL AFTER GETTING HIS AMIODARONE AND METOPROLOL. PATIENT GOT HIS OTHER MEDICATION, CHG BATH WAS DONE FOR THE PATIENT. WILL CONTINUE TO MONITOR.
--- NOTE | 2018-06-22 12:00 | NUR ---
RN NOTE PATIENT BLADDER WAS SCANNED AND FOUND OUT TO HAVE 300 ML OF RETAINED URINE, DR. CANNON WAS CONTACTED AND AN ORDER TO PLACE A MEDINA CATHTER WAS RECEIVED. PATIENT'S CATH PRODUCED 300 ML OF CORNELIUS URINE , NO BLEEDING OR SEDIMENT. PATIENT FELT BETTER AND SLEPT FOR ABOUT AN HOUR AFTER THAT. WILL CONTINUE TO MONITOR.
[2018-06-22] MEDS: LORazepam 1 MG TABLET PO PRN (12:42)
--- NOTE | 2018-06-22 14:00 | NUR ---
RN NOTE PATIENT RESTING ON BED, DAUGHTER BY THE BEDSIDE, WAS EDUCATED ABOUT ZOFRAN SIDE EFFECTS. PATIENT FELT A LITTLE NAUSEA AND GOT HIS PRN MEDICATION. PATIENT AND DAUGHTER WAS EDUCATED ABOUT FALL PREVENTION, WILL CONTINUE TO MONITOR
--- NOTE | 2018-06-22 15:10 | NUR ---
Call out to Dr. gonzales regarding increasing agitation. HR 90, MURPHY stable. Pt saying help me, help me and yanking on restraints, pulling on mcmillan catheter. Family at bedside with pt.
--- NOTE | 2018-06-22 15:30 | NUR ---
2nd call out to Dr. Roman regarding increasing agitation.
--- NOTE | 2018-06-22 15:40 | NUR ---
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
--- NOTE | 2018-06-22 15:45 | NUR ---
Call out to Dr. Shrestha for agitation. No call back from Dr. Vargas yet.
--- NOTE | 2018-06-22 15:50 | NUR ---
Spoke with Dr. Vargas and informed him of increasing agitation. Orders left for IV Ativan and IM Haldol. Spoke with family and they are ok with pt receiving both medications. Bedside RN aware of this.
[2018-06-22] MEDS ORDERED: LORazepam 2 MG/ML VIAL ONE (15:59)
[2018-06-22] MEDS ORDERED: HALOPERIDOL LACTATE 5 MG/ML VIAL IM ONE (16:00)
--- NOTE | 2018-06-22 16:45 | NUR ---
RN NOTE PATIENT GOT HIS ATIVAN IVP PERSCRIBED AND SLEPT FOR A LITTLE BIT THEN WOKE UP AND BECAME VERY AGITATED PATIENT WAS GIVEN HIS ONCE DOSE OF HALDOL PRESCRIBED, PATIENT CALMED DOWN, WILL CONTINUE TO MONITOR.
--- NOTE | 2018-06-22 18:00 | NUR ---
RN CLOSING NOTE DR. TORRES , DR. MANN AND ANJALI MAE SAW THE PATIENT, PATIENT RESTING ON BED, CONFUSED, DENIES PAIN OR DISCOMFORT. PATIENT WAS SERVED HIS DINNER, BUT PATIENT DOESN'T LIKE TO EAT. DR. TORRES SAID WE CAN GIVE HIM A PUDDING. WILL TRY TO GET HIM ONE AND FEED HIM. DR. TORRES WAS TOLD ABOUT THE PATIENT POTASSIUM LEVEL AND HE ORDERED 40 MEQ TO BE GIVEN P.O. PATIENT WAS REPOISITIONED IN BED. BED WAS STRAIGHTENED. WILL CONTINUE TO MONITOR AND WILL ENDORSE OT NEXT SHIFT.
[2018-06-22] MEDS ORDERED: TAMSULOSIN HCL 0.4 MG CAP PO SCH (18:45)
[2018-06-22] MEDS ORDERED: POTASSIUM CHLORIDE 20 MEQ TAB.PRT.SR PO ONE (18:45)
[2018-06-22] MEDS ORDERED: cloNIDine HCL 0.1 MG TABLET PO PRN (18:45)
--- NOTE | 2018-06-22 19:10 | NUR ---
CALLED THE EXCHANGED FOR DR DUMONT AND DR MCGEE BOTH ARE AWARE OF THE CONSULT NEEDED FOR THE PATIENT CALLED @ 7:00PM
--- NOTE | 2018-06-22 19:30 | NUR ---
opening note Patient received from am nurse Jaime. Patient in bed with eyes closed. Rise and fall of chest noted. Daughter at bedside. Patient's VS WNL. No sign of acute distress noted at this time. NS running at 75ml/hr. Patient on 2L NC sating at 98%. Call light within reach. Will continue to monitor.
--- NOTE | 2018-06-22 20:00 | NUR ---
SCDs SCDs applied to bilateral lower legs as DVT prophylaxis per order.
[2018-06-22] MEDS: MEROPENEM 500 MG in NS 50 ML IV SCH (21:12)
--- NOTE | 2018-06-22 21:27 | NUR ---
C. Diff, STOOL, WBC STOOL Unable to collect stool at this time. Patient no BM yet. Will try to collect and send stool sample when available.
[2018-06-22] MEDS: LORazepam 2 MG/ML VIAL IVP PRN (21:53)
--- NOTE | 2018-06-22 21:55 | NUR ---
HYDROCODONE Dr. Daugherty called back and informed him that patient's daughter wanted hydrocodone for his father. Daughter said that he takes this med BID PO everyday for pain and she feels she is getting agitated because he is not getting the med. Dr. Daugherty said he would put in the order for this.
--- NOTE | 2018-06-22 22:14 | NUR ---
ENDORSEMENT Patient endorsed to Hair ALFARO. Report given at bedside.
--- NOTE | 2018-06-22 22:15 | NUR ---
Assume care Received patient in bed awake but very restless, appear to be confused, daughter at bedside. GLADYS PICC noted no infiltrate and with good blood return. F/C noted with cloudy caron urine in the bag. Will monitor patient.
[2018-06-22] MEDS: HYDROcodone/ACETAMIN 10-325 MG TAB PO SCH (22:34)
--- NOTE | 2018-06-22 22:34 | NUR ---
[place] admin Patient is very restless, trying to get up from bed and pull tubings. Daughter thinks he is having withdrawal from [place], patient is taking [place] for a long time and has not taken [place]wood here. Admin De[place]wood as ordered.Will monitor.
--- NOTE | 2018-06-22 23:30 | NUR ---
Admin Dilaudid Patient is still agitated and restless in bed. Daughter showed frustration, raising her voice to the patient and this nurse. Patient cant express his needs, very confused. I suggested Dilaudid, suspecting patient is suffering from pain but because of Dementia, he is unable to verbalized it. The daughter refused at first but after 20 mins of arguing, tossing and turning, she agreed. Will monitor patient.
[2018-06-23] VITALS (24 sets, daily range): BP systolic 93–181
--- NOTE | 2018-06-23 02:04 | NUR ---
Resting comfortably at this time Patient resting comfortably with eyes close ,no s/s of any distress noted. Reposition for comfort and circulation. Call light in reach, will cont to monitor.
[2018-06-23] MEDS: HYDROmorphone 1 MG INJ. 1 MG/ML AMPUL IVP PRN ×3 (03:49→14:51)
[2018-06-23] MEDS: NACL 0.9% 1,000 ML IV SCH ×2 (03:53→17:38)
[2018-06-23] MEDS: LevALBUTEROL HCL 1.25 MG/0.5 ML *CONC.* VIAL.NEB (XOPENEX CONC.) INH PRN (04:36)
[2018-06-23] MEDS: MEROPENEM 500 MG in NS 50 ML IV SCH ×3 (05:32→21:28)
[2018-06-23 06:35] LABS: BASOPHILS % (AUTO) 0.1 % (0.0-2.0); EOSINOPHILS # (AUTO) 0.1 K/uL (0.0-0.4); EOSINOPHILS % (AUTO) 0.6 % (0.0-4.0); HEMATOCRIT 30.6 % (36-54); HEMOGLOBIN 10.1 g/dL (14.0-18.0); LYMPHOCYTES # (AUTO) 0.7 K/uL (1.0-5.5); LYMPHOCYTES % (AUTO) 6.9 % (20.5-51.5); MEAN CORPUSCULAR HEMOGLOBIN 32 pg (27-31); MEAN CORPUSCULAR HGB CONC 33 % (32-36); MEAN CORPUSCULAR VOLUME 96 fL (79.0-98.0); MONOCYTES # (AUTO) 0.2 K/uL (0.0-1.0); MONOCYTES % (AUTO) 1.9 % (1.7-9.3); NEUTROPHILS # (AUTO) 8.8 K/uL (1.8-7.7); PLATELET COUNT (AUTO) 121 K/uL (130-430); RED BLOOD CELL COUNT(AUTO) 3.19 MIL/uL (4.2-6.2); WHITE BLOOD COUNT (AUTO) 9.8 K/uL (4.8-10.8)
--- NOTE | 2018-06-23 06:43 | NUR ---
Unable to Collect stool Patient has no BM during shift, unable to collect sample for c diff, wbc, and stool culture. Will endorse to incoming nurse.
--- NOTE | 2018-06-23 06:58 | NUR ---
End of shift notes Patient is resting in bed with eyes close. No s/s of any distress noted. All needs met and anticipated by noc nurse. Call light in reach with side rails up x4. No skin breakdown to lina wrist. Will endorse care to incoming nurse.
[2018-06-23 07:04] LABS: ANION GAP 8 (5-15); CALCIUM 7.5 mg/dL (8.4-11.0); CHLORIDE 110 mmol/L (98-107); CREATININE 0.96 mg/dL (0.55-1.30); GLUCOSE 114 mg/dL (70-99); POTASSIUM 3.5 mmol/L (3.5-5.1); SODIUM SERUM 142 mmol/L (136-145); UREA NITROGEN, BLOOD 21 mg/dL (8-21)
[2018-06-23 07:13] LABS: ALANINE AMINOTRANSFERASE 17 U/L (12-78); ASPARTATE AMINOTRANSFERASE 26 U/L (10-37); PHOSPHORUS 1.3 mg/dL (2.7-4.5); TOTAL BILIRUBIN 0.6 mg/dL (0.0-1.0)
[2018-06-23] MEDS: LevALBUTEROL HCL 1.25 MG/0.5 ML *CONC.* VIAL.NEB (XOPENEX CONC.) INH SCH ×4 (07:53→18:00)
[2018-06-23 08:18] LABS: NEUTROPHILS % (AUTO) 90.5 % (40.0-70.0)
--- NOTE | 2018-06-23 08:34 | NUR ---
PAIN. PT YELLING HELP ME! HELP ME!, ASSISTED PT IN TURNING IN BED, GRIMACING, MEDICATED PT WITH DILAUDID 0.5 MG IVP ORDERED.
[2018-06-23] MEDS: HYDROcodone/ACETAMIN 10-325 MG TAB PO SCH ×2 (09:00→19:33)
[2018-06-23] MEDS: AMIODARONE HCL 200 MG TABLET PO SCH ×2 (09:00→21:26)
[2018-06-23] MEDS: METOPROLOL TARTRATE 25 MG TABLET PO SCH ×2 (09:00→21:25)
[2018-06-23] MEDS: TAMSULOSIN HCL 0.4 MG CAP PO SCH (09:00)
--- NOTE | 2018-06-23 09:12 | NUR ---
G I SPECIALIST. DR MANN AT BEDSIDE, EXAMINING PT. ORDERED TO DO CT SCAN OF ABDOMEN/PELVIS WITH IV CONTRAST, CALLED PT'S DAUGHTER YASMANY, SHE GAVE CONSENT.
[2018-06-23] MEDS ORDERED: DIATR MEGLU/DIATRIZ SOD 30 ML SOLUTION PO ONE (10:06)
[2018-06-23] MEDS: LORazepam 2 MG/ML VIAL IVP PRN ×2 (10:14→16:06)
--- NOTE | 2018-06-23 10:14 | NUR ---
ANXIETY PT CONSTANTLY PULLING DOWN HIS ROBE AND MEDINA CATHETER TUBING, MOVED TUBING AWAY FROM HIS REACH, PT RESTLESS, ATIVAN 0.5 MG IVP ADMINISTERED FOR ANXIETY.
[2018-06-23] MEDS: prednisoLONE 1% OPHTHALMIC SUSPN 5 ML OP SCH ×4 (10:17→21:25)
--- NOTE | 2018-06-23 11:20 | NUR ---
PSYCHIATRIST. DR BLACK EXAMINED PT, NEW ORDERS RECEIVED.
--- NOTE | 2018-06-23 14:15 | NUR ---
PAIN. PT VERBALIZED BODY DISCOMFORT, MOANING AND GRIMACING WHEN TURNED, DILAUDID 0.5 MG IVP GIVEN.
[2018-06-23] MEDS ORDERED: IOHEXOL 100 ML IV ONE (14:52)
--- NOTE | 2018-06-23 15:00 | NUR ---
CM DCP ASSESSMENT: ATTEMPTED DCP ASSESSMENT WITH DTR; PARTIALLY COMPLETED DUE TO Pt's DISCOMFORT PENDING CT TESTING OF ABDOMEN. CM WILL REMAIN AVAILABLE NEEDED PRIOR TO DC FOR FUTURE PLANNING.
--- NOTE | 2018-06-23 15:15 | NUR ---
TO CT SCAN DEPT. TRANSPORTED PT VIA PORTABLE CARDIAC MONITORING WITH PORTABLE O2 FOR CT OF ABDOMEN/PELVIS.
--- NOTE | 2018-06-23 15:35 | NUR ---
TO ICU. BROUGHT PT BACK IN ROOM 8.
--- NOTE | 2018-06-23 16:06 | NUR ---
ANXIETY. PT MEDICATED WITH ATIVAN 0.5 MG IVP FOR RESTLESSNESS, PT DISROBING AND KICKING HIS BLANKETS.
--- NOTE | 2018-06-23 17:00 | NUR ---
RELIEF. PT COMFORTABLE AT THIS HOUR.
--- NOTE | 2018-06-23 18:30 | NUR ---
. DR MEYERS CAME IN AND EXAMINED PT. PATIENT UNABLE TO COMMUNICATE TO MD, ONLY REPEATS WORDS, PLS HELP ME!.
[2018-06-23] MEDS: QUEtiapine FUMARATE 25 MG TABLET PO SCH (18:45)
--- NOTE | 2018-06-23 19:40 | NUR ---
OPENING NOTE Patient resting in the bed with eyes closed. No acute distress. Respiration even and unlabored. On O2 2L/min via NC. Skin warm and dry to touch. F/C intact, drain gravity. SCD in placed. Bilateral soft wrist restraint in placed. On contact isolation. Daughter at bedside. Safety measure maintained. Bed locked in low position, side rails up, bed alarm on. Call light within reached. Will continue to monitor.
--- NOTE | 2018-06-23 20:15 | NUR ---
OFF UNIT FOR CT OF HEAD Patient off unit for CT of head via bed with O2 and heart monitor in stable condition.
--- NOTE | 2018-06-23 20:35 | NUR ---
BACK TO UNIT Patient back to unit after CT of head in stable condition.
[2018-06-23] MEDS ORDERED: QUEtiapine FUMARATE 25 MG TABLET PO SCH ×3 (21:00)
[2018-06-23] MEDS: INSULIN REGULAR, HUMAN 100 UNITS/ML, 10 ML VIAL (novoLIN R) SUBCUT PRN (21:44)
--- NOTE | 2018-06-23 23:20 | NUR ---
ROUND Patient resting in the bed with eyes closed. No acute distress. Respiration even and unlabored. Continue on O2 2L/min via NC. PICC line intact to GLADYS, no redness, no swelling, no drainage, covered with clean adn dry transparent dressing. ON NS at 75ml/hr, infusing well. On contact isolation. F/C intact, drain gravity. SCD in placed. Safety measure maintained. Call light within reached. Bed locked in low position, side rails up, bed alarm on. Continue to monitor.
[2018-06-24] VITALS (15 sets, daily range): BP systolic 117–190
[2018-06-24] MEDS: HYDROmorphone 1 MG INJ. 1 MG/ML AMPUL IVP PRN (01:13)
--- NOTE | 2018-06-24 01:14 | NUR ---
DILAUDID GIVEN Patient c/o generalized pain 12/31, Dilaudid 0.5mg IVP given as ordered. No acute distress. F/C intact, drain gravity. SCD in placed. Bilateral soft wrist restraint in placed. Safety measure maintained. Call light within reached. Bed locked in low position, side rails up, bed alarm on. Continue on contact isolation. Continue to monitor.
[2018-06-24] MEDS: LevALBUTEROL HCL 1.25 MG/0.5 ML *CONC.* VIAL.NEB (XOPENEX CONC.) INH SCH ×4 (01:29→18:00)
--- NOTE | 2018-06-24 01:45 | NUR ---
HANDS OFF Report given to DOMINIC Juarez. Patient relaxed and resting in the bed comfortable. No acute distress. Continue on O2 2L/min via NC. PICC line intact, IVF infusing well. F/C intact, drain gravity. SCD in placed. Continue on contact isolation. Safety measure maintained. Call light within reached. Bed locked in low position, side rails up, bed alarm on. Hand off and SBAR given to DOMINIC Juarez.
--- NOTE | 2018-06-24 01:50 | NUR ---
PM ASSESSMENT Received report from DOMINIC ELIAS. Pt is sleeping in bed. VSS. NC @ 2L, RR even and unlabored. 1st Degree HB noted on monitor. Skin warm and intact. PICC to GLADYS with IVF infusing. IV22g SL to RFA, no signs of infiltration noted. Bilateral wrist restraints noted, no skin issues noted. Bingham catheter in place and draining to gravity. Safety precautions in place, call light within reach. Will continue to monitor.
[2018-06-24] MEDS: LORazepam 2 MG/ML VIAL IVP PRN (05:28)
[2018-06-24] MEDS: MEROPENEM 500 MG in NS 50 ML IV SCH ×3 (05:28→22:36)
[2018-06-24 05:56] LABS: BASOPHILS % (AUTO) 0.4 % (0.0-2.0); EOSINOPHILS # (AUTO) 0.1 K/uL (0.0-0.4); EOSINOPHILS % (AUTO) 1.1 % (0.0-4.0); HEMATOCRIT 33.2 % (36-54); HEMOGLOBIN 11.1 g/dL (14.0-18.0); LYMPHOCYTES # (AUTO) 0.8 K/uL (1.0-5.5); LYMPHOCYTES % (AUTO) 8.6 % (20.5-51.5); MEAN CORPUSCULAR HEMOGLOBIN 32 pg (27-31); MEAN CORPUSCULAR HGB CONC 34 % (32-36); MEAN CORPUSCULAR VOLUME 94 fL (79.0-98.0); MONOCYTES # (AUTO) 0.3 K/uL (0.0-1.0); MONOCYTES % (AUTO) 3.9 % (1.7-9.3); NEUTROPHILS # (AUTO) 7.7 K/uL (1.8-7.7); PLATELET COUNT (AUTO) 129 K/uL (130-430); RED BLOOD CELL COUNT(AUTO) 3.51 MIL/uL (4.2-6.2); RED CELL DISTRIBUTION WIDTH 12.6 % (9.0-15.0); WHITE BLOOD COUNT (AUTO) 8.9 K/uL (4.8-10.8)
[2018-06-24 06:16] LABS: ALANINE AMINOTRANSFERASE 21 U/L (12-78); ALBUMIN 2.3 g/dL (3.4-4.8); ANION GAP 11 (5-15); ASPARTATE AMINOTRANSFERASE 19 U/L (10-37); CALCIUM 8.1 mg/dL (8.4-11.0); CHLORIDE 110 mmol/L (98-107); CREATININE 0.83 mg/dL (0.55-1.30); GLUCOSE 94 mg/dL (70-99); POTASSIUM 3.7 mmol/L (3.5-5.1); SODIUM SERUM 144 mmol/L (136-145); TOTAL BILIRUBIN 0.8 mg/dL (0.0-1.0); UREA NITROGEN, BLOOD 17 mg/dL (8-21)
--- NOTE | 2018-06-24 07:09 | NUR ---
ENDORSEMENT Pt care endorsed to DOMINIC MANRIQUEZ using nursing SBAR.
--- NOTE | 2018-06-24 07:11 | NUR ---
AM ROUNDS: Report received from Ann for continuation of care. Patient is resting in bed. No signs or symptoms of distress noted.
[2018-06-24] MEDS: NACL 0.9% 1,000 ML IV SCH ×2 (07:57→22:36)
[2018-06-24] MEDS: AMIODARONE HCL 200 MG TABLET PO SCH ×2 (07:58→20:32)
[2018-06-24] MEDS: METOPROLOL TARTRATE 25 MG TABLET PO SCH ×2 (07:59→20:30)
[2018-06-24] MEDS: TAMSULOSIN HCL 0.4 MG CAP PO SCH (07:59)
[2018-06-24] MEDS: prednisoLONE 1% OPHTHALMIC SUSPN 5 ML OP SCH ×4 (07:59→21:17)
[2018-06-24] MEDS ORDERED: QUEtiapine FUMARATE 25 MG TABLET PO SCH (08:00)
[2018-06-24] MEDS: HYDROcodone/ACETAMIN 10-325 MG TAB PO SCH ×2 (08:01→20:31)
--- NOTE | 2018-06-24 08:51 | NUR ---
MD ROUNDS: Dr. Shrestha in to see patient.
--- NOTE | 2018-06-24 09:17 | NUR ---
MD COMMUNICATION: Patient cleared by Dr. Shrestha for downgrade to telemetry.
--- NOTE | 2018-06-24 09:19 | NUR ---
PAGED: Dr. Vargas paged at .
--- NOTE | 2018-06-24 09:37 | NUR ---
TELEMETRY: Patient downgraded to telemetry. Waiting for bed assignment.
--- NOTE | 2018-06-24 09:55 | NUR ---
EEG: farm operations technical director at bedside and setting up for procedure.
--- NOTE | 2018-06-24 11:17 | NUR ---
MD ROUNDS: Dr. Amanda in to see patient. MD is talking to patient's daughter.
[2018-06-24] MEDS ORDERED: QUEtiapine FUMARATE 25 MG TABLET PO PRN ×3 (11:30→22:15)
--- NOTE | 2018-06-24 13:30 | NUR ---
TRANSFERRED: Patient transferred to telemetry room 120 bed A via hospital bed with mobile monitor. Report given to Jaime for continuation of care.
--- NOTE | 2018-06-24 13:35 | NUR ---
RN RECEIVING NOTE PATIENT RESTING ON BED, NO VERBAL LETHARGIC. PATIENT WAS ASSESSED, VITAL SIGNS ARE STABLE. AND PATIENT IN APPARENT NO PAIN USING FLACC SCALE , DAUGHTER BY THE BEDSIDE, PATIENT IS SLEEPY, REFUSED TO OPEN EYES WHEN THE LIDS GET OPENED BY HAND. PATIENT ON TELE SR, IVF IS RUNNING PRESCRIBED, WILL CONTINUE TO MONITOR .
--- NOTE | 2018-06-24 14:59 | NUR ---
Dietitian Recommendations *Recommend continuing clear liquid diet per MD orders. *When PO intake does not improve, consider alternate route of nutrition support in 3-5 days. Please see Nutritional Assessment for details. PEDRO LUIS, RD
--- NOTE | 2018-06-24 16:00 | NUR ---
RN NOTE PATIENT STILL SLEEPING, OBTUNDED, PATIENT VITAL SIGNS ARE STABLE. FLACC SCALE SHOWS PATIENT HAS NO PAIN, DAUGHTER BY THE BEDSIDE, PATIENT RESTRAINTS WAS ASSESSED, PATIENT WAS REPOSITIONED. WILL CONTINUE TO MONITOR.
--- NOTE | 2018-06-24 19:00 | NUR ---
RN CLOSING NOTE PATIENT WOKE UP AND MORE ALERT NOW. PATIENT WAS FED HIS DINNER, PATIENT SAID HE IS VERY THIRSTY, PATIENT WAS GIVEN ICE CHIPS. PATIENT ATE HIS JELLO, NO GAGING OR ASPIRATION. DR. MCKEON RENEWED THE ORDER FOR THE RESTRAINTS. PATIENT IS PULLING DOWN ON HIS MEDINA CATH AND ON THE BED SHEETS. PATIENT NEEDS TO HAVE A BM, BUT IT TURNED OUT TO BE ONLY BOWEL GAS. PATIENT WAS GIVEN A DULCOLAX SUPP. PATIENT VITAL SIGNS ARE STABLE. FLACC SCALE SHOWS PATIENT HAS NO PAIN, DAUGHTER BY THE BEDSIDE, PATIENT RESTRAINTS WAS ASSESSED, PATIENT WAS REPOSITIONED. WILL ENDORSE TO NEXT SHIFT.
[2018-06-24] MEDS: BISACODYL 10 MG/SUPPOSITORY RC PRN (19:15)
--- NOTE | 2018-06-24 19:45 | NUR ---
INITIAL NOTES: PT IS AWAKE , AGITATED ,REMOVING GOWN; REPORT RECEIVED ; DAUGHTER WANTS TO GIVE SEROQUEL NOW , INFORMED DAUGHTER THAT MEDICATION IS NOT DUE YET , WILL GIVE IT AFTER 8PM . SINCE PT IS AGITATED WILL DO ASSESSMENT LATER ONCE . DAUGHTER STATED PT DIDNT HAD ANY BM FOR THE LAST 5 DAYS . PT ALREADY RECEIVED SUPPOSITORY . DAUGHTER IS VERY DEMANDING .
--- NOTE | 2018-06-24 20:15 | NUR ---
RN NOTES:: DAUGHTER WENT TO [facility] AND GOT ANGRY AT HER , [facility] CALLED AND ASKED TO CHECK THE PT,9 RN WAS BUSY WITH ANOTHER PT DURING THIS TIME AND US MADE DAUGHTER AWARE ). PT IS AWAKE , AGITATED ,REMOVING HIS GOWN, WHILE ENTERING THE ROOM DAUGHTER RAISED HER VOICE AND TALKED TO RN , STATED "I WANT YOU TO DO SOMETHING , HE WANTS TO GO POOP BUT HE COULDNT , PREVIOUS RN TOLD THE MEDICATION IS GOING TO WORK RIGHT AWAY BUT HE IS NOT POOPING UNTIL NOW , THATS WHY HE IS GETTING AGITATED , YOU ARE NOT DOING ANY THING " , TRY TO EDUCATE THE DAUGHTER BUT SHE DOESNT WANT TO LISTEN , STILL INFORMED HER THAT SUPPOSITORY TAKES FEW HRS TO WORK IT , WHILE SHE HEARD THAT SHE STATED OK THEN I WANT YOU TO GIVE MY DAD HIS MEDICATION NOW . TOLD HER WILL GET MEDICATION FROM [facility] AND WILL GIVEN
[2018-06-24] MEDS: QUEtiapine FUMARATE 25 MG TABLET PO SCH ×2 (20:37→21:00)
--- NOTE | 2018-06-24 20:39 | NUR ---
MEDICATION: DUE MEDS GIVEN PER ORDER , BUT NOTICED THAT PT HAS 2 SEROQUEL ORDER BUT PER DAY SHIFT RN REPORT MD WANTS TO REDUCE THE DOSAGE , WILL GIVE MEDICATION PER TODAY'S ORDER AND WILL CALL MD AND CLARIFY ORDER .SO SEROQUEL 50 MG IS NOT GIVEN AT THIS TIME , WHEN DAUGHTER INFORMED ABOUT IT , DAUGHTER STATED LAST NIGHT THEY GAVE 50 MG , BUT IT DIDNT HELP HIM THEN WHY ARE YOU SAYING THAT DOCTOR WANTS TO GIVE LESS DOSE TODAY . INFORMED DAUGHTER THAT WILL GIVE THE SMALL DOSE OF 25 MG NOW AND WILL CLARIFY THE [address] BLACK , AND IF HE IS OK WITH GIVING I WILL GIVE IT LATER .
--- NOTE | 2018-06-24 20:40 | NUR ---
MEDICATION; DUE MEDS EXCEPT SEROQUEL 50 MG PO CRUSHED AND GIVEN WITH JELLO . PT SWALLOWED WELL . NO S/S OF ANY ASPIRATION NOTED .
--- NOTE | 2018-06-24 20:59 | NUR ---
PASTORAD PAGED DR. DUMONT; DR. LAU NURSE SANE.
[2018-06-24] MEDS: LevALBUTEROL HCL 1.25 MG/0.5 ML *CONC.* VIAL.NEB (XOPENEX CONC.) INH PRN (21:02)
--- NOTE | 2018-06-24 21:09 | NUR ---
FILEMON HAQUE CANCELLED PAGE FOR DR. LAU AND SENT NEW PAGE FOR DR. FERGUSON TO CLARIFY ORDERS.
[2018-06-24] MEDS: INSULIN REGULAR, HUMAN 100 UNITS/ML, 10 ML VIAL (novoLIN R) SUBCUT PRN (21:22)
--- NOTE | 2018-06-24 21:30 | NUR ---
IV DCD: IV ON THE R FA NOTED WITH SLIGHT SWELLING , IV DCD , CATH TIP IS INTACT SINCE PT HAS PICCLINE AND RECEIVING IV FLUID VIA IT .
--- NOTE | 2018-06-24 21:40 | NUR ---
V TACH : MT CALLED AND STATED PT HAD 13 SEC 32 BEATS OF VTACH , ALSO PT IS HAVING BIGEMINY AND COUPLETS AT THIS TIME. WILL NOTIFY VITALS CHECKED BP 174/98 .
--- NOTE | 2018-06-24 21:51 | NUR ---
FILEMON bains PAGEBala FERGUSON FOR SECOND PAGE TO CLARIFY ORDERS. Addendum: 06/24/18 at 2153 by Elsa Hernandez MD/ MICHAEL WITH NELA
--- NOTE | 2018-06-24 21:57 | NUR ---
FILEMON HAQUE PAGED DR. CANNON IN REGARDING THE PT HAVING A RUN OF VTACH.
--- NOTE | 2018-06-24 22:04 | NUR ---
CALLED BACK: TALKED WITH DR BLACK ABOUT THE DOSAGE OF SEROQUEL , ORDERED ONLY TO GIVE 25 MG , AND MD WANTS TO STOP 50 MG OF SEROQUEL ORDER ALSO MD ORDERED TO CHANGE PRN SEROQUEL 12.5 MG ORDER BIDBL TO BID PRN . ORDER CHANGED . SEROQUEL 50 MG WASTED SINCE IT WAS REMOVED AND OPENED EARLIER .
--- NOTE | 2018-06-24 22:10 | NUR ---
BP : BP 161/86 , PT IS MORE ;CALM MD DIDNT CALL BACK YET, WILL PAGE HIM AGAIN
--- NOTE | 2018-06-24 22:15 | NUR ---
FILEMON HAQUE x2 SECOND PAGE FOR DR. CONNOR HAQUE (SHEET METAL SHOP HELPER FOR DR. CANNON).
--- NOTE | 2018-06-24 22:42 | NUR ---
PAGED x3 THIRD PAGE SENT OUT TO DR. RYAN (HEALTH PLAN SPECIALIST FOR DR. CANNON).
--- NOTE | 2018-06-24 22:47 | NUR ---
CALLED BACK : DR RYAN CALLED BACK , INFORMED MD THAT PT HAD V TACH 32 BEATS LASTED 13 SEC AND PT HAS JOSE AND MANIT , INFORMED ABOUT THE AMIODARONE 400 MG PO WAS GIVEN , ALSO NOTIFIED THAT PT WAS TRANSFERRED FROM ICU AND HE RECEIVED AMIODARONE DRIP WHILE HE WAS IN ICU .DR RYAN ORDERED TO WATCH THE PT FOR AN HOUR AND CALL HIM AGAIN IF ANY SHOWING DYSRHYTHMIA . Addendum: 06/24/18 at 2257 by Octavio Molina RN NOTIFIED ABOUT THE BP OF 161/86.
--- NOTE | 2018-06-24 23:35 | NUR ---
BP :157/92; PT IS CALM AT THIS TIME , BUT STILL HAS BIGEMINY , TRIGEMINY AND COUPLETS , WILL NOTIFY .
--- NOTE | 2018-06-24 23:38 | NUR ---
FILEMON HAQUE PAGING DR. RYAN. PHYSICIAN ANSWERED AND SPOKE WITH THE RN, KG.
[2018-06-24] MEDS ORDERED: METOPROLOL TARTRATE 50 MG TABLET PO ONE (23:45)
--- NOTE | 2018-06-24 23:46 | NUR ---
CALLED BACK : DR RYAN CALLED , TALKED WITH MD , INFORMED HIM ABOUT THE BIGEMINY,TRIGEMINY AND COUPLET , ALSO NOTIFIED MD THAT PT S BP 1S 157/92 HR ON THE 80S , PT IS MORE CALM , BUT STILL MOVING HIS ARMS . MD ORDERED TO GIVE LOPRESSOR 50 MG PO X 1, REMINDED MD THAT PT RECEIVED LOPRESSOR 25 MG EARLIER AT 2030 TONIGHT . MD STATED GIVE ADDITION DOSE OF 50 MG OF METOPROLOL X 1 NOW .ORDER ENTERED
--- NOTE | 2018-06-24 23:56 | NUR ---
LOPRESSOR : PER DR RYAN ORDERED , LOPRESSOR 50 MG PO CRUSHED AND GIVEN WITH JELLO , PT SWALLOWED WELL ; NO S/S OF ANY ASPIRATION NOTED ; WILL CONTINUE TO MONITOR PT .
[2018-06-25] VITALS (7 sets, daily range): BP systolic 123–177
[2018-06-25] MEDS: LevALBUTEROL HCL 1.25 MG/0.5 ML *CONC.* VIAL.NEB (XOPENEX CONC.) INH SCH ×4 (00:02→21:12)
[2018-06-25] MEDS: LORazepam 2 MG/ML VIAL IVP PRN ×2 (00:41→20:24)
--- NOTE | 2018-06-25 00:41 | NUR ---
AGITATED: PT IS AWAKE , ASKING FOR HELP ; NOTICED THAT PT IS GETTING RESTLESS, ATIVAN GIVEN PER ORDER .
[2018-06-25] MEDS: LevALBUTEROL HCL 1.25 MG/0.5 ML *CONC.* VIAL.NEB (XOPENEX CONC.) INH PRN ×2 (01:25→03:33)
--- NOTE | 2018-06-25 02:00 | NUR ---
RN NOTES: PT IS SLEEPING , NO S/S OF ANY DISTRESS NOTED ; WILL CONTINUE TO MONITOR PT .
--- NOTE | 2018-06-25 02:55 | NUR ---
V TACH : PT HAD ANOTHER EPISODE OF V TACH 7.46 SEC , 17 BEATS , VITALS CHECKED BP 171/98 ; PT IS AWAKE , NOTICED THAT PT IS HAVING WHEEZING , WILL NOTIFY
--- NOTE | 2018-06-25 03:10 | NUR ---
MT CALLED AND STATED PT HAD ANOTHER RUN OF V TACH 7.26 SEC 15 BEATS . ROBERTO HAQUE
--- NOTE | 2018-06-25 03:17 | NUR ---
CALLED : DR RYAN CALLED TO NOTIFY THE V TACH ,TALKED WITH DR RYAN AND NOTIFIED PT HAD ANOTHER 2 EPISODES OF V TACH , 1 ST ONE WITH 17 BEATS AND 7.64 SEC , 2 ND OE IS 15 BEATS AND 7.26 SEC , NOTIFIED THAT LOPRESSOR 50 WAS GIVEN EARLIER PER HIS ORDER ;PTS BP IS 171/98, 175/110, NOTIFIED MD THAT PT IS AGITATED AND WAS GIVEN ATIVAN 0.5 MG EARLIER . STATED"DR CANNON WILL COME AND SEE THE PT IN THE MORNING , NO ORDERS FOR NOW " ALSO NOTIFIED ABOUT THE WHEEZING , ORDERED TO GIVE BREATHING TREATMENT X1 NOW PER PTS ORDER .REPEATEDLY ASKED ABOUT THE V TACH , STATED "GIVE BREATHING TREATMENT , WILL SEE ,NO OTHER ORDERS NOW ". HANGED UP THE PHONE.
--- NOTE | 2018-06-25 03:50 | NUR ---
FILEMON TORRES @ 035O I SPOPKE WITH JANEL EXCHANGE 20 Addendum: 06/25/18 at 0427 by Gloria Ott KS/ DR. MEYERS COLLEGE ATHLETE FOR MELISSA MAE
--- NOTE | 2018-06-25 03:50 | NUR ---
RN NOTES AFTER BREATHING TREATMENT PT SOUNDS BETTER BUT STILL HAS WHEEZING , WILL NOTIFY PREIMARY DR
--- NOTE | 2018-06-25 04:10 | NUR ---
DIDNT CALL BACK YET , REQUESTED U.S TO PAGE DR TORRES AGAIN
--- NOTE | 2018-06-25 04:21 | NUR ---
FILEMON HAQUE SECOND PAGE CALLED FOR DR. MEYERS.
--- NOTE | 2018-06-25 05:30 | NUR ---
RN NOTES: PT IS SLEEPING ,NOT IN ANY ACUTE DISTRESS; MD DIDNT CALL BACK YET ; WILL CONTINUE TO MONITOR PT .
[2018-06-25] MEDS: MEROPENEM 500 MG in NS 50 ML IV SCH (06:25)
[2018-06-25 06:50] LABS: BASOPHILS % (AUTO) 0.3 % (0.0-2.0); EOSINOPHILS # (AUTO) 0.1 K/uL (0.0-0.4); EOSINOPHILS % (AUTO) 0.9 % (0.0-4.0); HEMATOCRIT 34.7 % (36-54); HEMOGLOBIN 11.5 g/dL (14.0-18.0); LYMPHOCYTES # (AUTO) 0.7 K/uL (1.0-5.5); LYMPHOCYTES % (AUTO) 6.9 % (20.5-51.5); MEAN CORPUSCULAR HEMOGLOBIN 31 pg (27-31); MEAN CORPUSCULAR HGB CONC 33 % (32-36); MEAN CORPUSCULAR VOLUME 95 fL (79.0-98.0); MONOCYTES # (AUTO) 0.7 K/uL (0.0-1.0); MONOCYTES % (AUTO) 6.9 % (1.7-9.3); NEUTROPHILS # (AUTO) 8.1 K/uL (1.8-7.7); PLATELET COUNT (AUTO) 144 K/uL (130-430); RED BLOOD CELL COUNT(AUTO) 3.67 MIL/uL (4.2-6.2); RED CELL DISTRIBUTION WIDTH 12.6 % (9.0-15.0); WHITE BLOOD COUNT (AUTO) 9.6 K/uL (4.8-10.8)
[2018-06-25 06:55] LABS: ANION GAP 11 (5-15); CALCIUM 8.1 mg/dL (8.4-11.0); CHLORIDE 110 mmol/L (98-107); CREATININE 0.88 mg/dL (0.55-1.30); GLUCOSE 140 mg/dL (70-99); POTASSIUM 3.4 mmol/L (3.5-5.1); SODIUM SERUM 146 mmol/L (136-145); UREA NITROGEN, BLOOD 13 mg/dL (8-21)
[2018-06-25 07:03] LABS: ALANINE AMINOTRANSFERASE 22 U/L (12-78); ALBUMIN 2.2 g/dL (3.4-4.8); ASPARTATE AMINOTRANSFERASE 19 U/L (10-37); TOTAL BILIRUBIN 0.9 mg/dL (0.0-1.0)
--- NOTE | 2018-06-25 07:30 | NUR ---
CLOSING NOTES: REPORT GIVEN TO RN AT BEDSIDE , ALL NEEDS MET ,PT IS RESTING WITH HIS EYES CLOSED , RESPIRATION IS EVEN AND NON LABORED . NOT IN ANY ACUTE DISTRESS .ENDORSED RN ABOUT THE V TACH AND WHEEZING .AND MD WAS PAGED .
--- NOTE | 2018-06-25 08:00 | NUR ---
OPENING NOTE: RECEIVED REPORT FROM NIGHT NURSE. PATIENT IS RESTING COMFORTABLY IN BED. NO S/S OF DISTRESS OR SOB. PATIENT IS LAYING WITH EYES CLOSED. OPENS EYES AND RESPONDS TO NAME. PATIENT ON 2L NASAL CANNULA. VITAL SIGNS UPDATED. PATIENT ON BILATERAL WRIST RESTRAINTS. MEDINA IS DRAINING TO GRAVITY. CALL LIGHT IN REACH, BED IN LOWEST POSITION, AND WILL CONTINUE TO MONITOR.
[2018-06-25] MEDS ORDERED: FUROSEMIDE 40 MG/4 ML VIAL IVP ONE (08:15)
[2018-06-25] MEDS ORDERED: POTASSIUM CHLORIDE 20 MEQ TAB.PRT.SR PO ONE (08:15)
--- NOTE | 2018-06-25 08:15 | NUR ---
DR. MEYERS CALLED BACK AND MD UPDATED ON CHANGES DURING TERRITORY SALES CONSULTANT. ORDERS RECEIVED.
[2018-06-25] MEDS: AMIODARONE HCL 200 MG TABLET PO SCH ×2 (08:57→20:11)
[2018-06-25] MEDS: METOPROLOL TARTRATE 25 MG TABLET PO SCH ×2 (08:57→20:11)
[2018-06-25] MEDS: TAMSULOSIN HCL 0.4 MG CAP PO SCH (08:57)
[2018-06-25] MEDS: HYDROcodone/ACETAMIN 10-325 MG TAB PO SCH ×2 (08:57→20:11)
[2018-06-25] MEDS: prednisoLONE 1% OPHTHALMIC SUSPN 5 ML OP SCH ×4 (08:58→20:11)
--- NOTE | 2018-06-25 09:30 | NUR ---
DAUGHTER AT BEDSIDE. RESTRAINTS REMOVED TO ASSESS IF STILL NEEDED. WILL MONITOR.
--- NOTE | 2018-06-25 10:00 | NUR ---
RN ROUNDS PATIENT IS RESTING COMFORTABLY IN BED. NO S/S OF DISTRESS OR SOB. PATIENT IS AWAKE BUT CONFUSED. DAUGTHER AT BEDSIDE. NO NEEDS AT THIS TIME. CALL LIGHT IN REACH, BED IN LOWEST POSITION, AND WILL CONTINUE TO MONITOR.
[2018-06-25] MEDS: NACL 0.9% 1,000 ML IV SCH (10:52)
[2018-06-25] MEDS: INSULIN REGULAR, HUMAN 100 UNITS/ML, 10 ML VIAL (novoLIN R) SUBCUT PRN ×2 (11:42→21:34)
--- NOTE | 2018-06-25 12:00 | NUR ---
RN ROUNDS PATIENT IS SLEEPING COMFORTABLY IN BED. NO S/S OF DISTRESS OR SOB. DAUGHTER AT BEDSIDE. PATIENT WAS CLEANED AND REPOSITIONED WITH FRONT DESK HOST. NO OTHER NEEDS AT THIS TIME. CALL LIGHT IN REACH, BED IN LOWEST POSITION, AND WILL CONTINUE TO MONITOR.
--- NOTE | 2018-06-25 13:49 | NUR ---
DC PLANNING Received call from Batsheva @ [facility], ph [phone], pt out of network & want to transfer if stable. States want to wait until Dr Vargas has seen pt today, informed do not know time will come see pt, comes @ different times of day. Gave Dr Vargas's direct ph#. [facility] is the anticipated hospital to transfer but if no beds there then they will get bed @ contracted hospital w bed availability. Called & informed dtr, Marguerite Lazo ph [phone], states has been transferred in past & is agreeable. Would prefer [facility] but will be agreeable w any contracted hospital once stable to transfer. Updated pt's nurse, Maribel.
--- NOTE | 2018-06-25 14:00 | NUR ---
RN ROUNDS PATIENT IS RESTING IN BED. PATIENT STARTING TO BECOME A LITTLE AGITATED. CONSTANTLY REMOVING TELEMETRY LEADS AND AND GOWN. PATIENT ATTEMPTED TO REORIENT. PATIENT IS CONFUSED. NO NEEDS AT THIS TIME. CALL LIGHT IN REACH, BED IN LOWEST POSITION, AND WILL CONTINUE TO MONITOR.
--- NOTE | 2018-06-25 15:00 | NUR ---
PATIENT PLACED BACK ON RESTRAINTS. PATIENT PULLING OFF CLOTHES, TAKING OF TELEMETRY LEADS AND STARTED PULLING AT PICC LINE.
--- NOTE | 2018-06-25 16:00 | NUR ---
RN ROUNDS PATIENT IS RESTING COMFORTABLY IN BED. NO S/S OF DISTRESS OR SOB. PATIENT ON BILATERAL WRIST RESTRAINTS. PATIENT ON 2 L NASAL CANNULA. NO NEEDS AT THIS TIME. CALL LIGHT IN REACH, BED IN LOWEST POSITION, AND WILL CONTINUE TO MONITOR.
[2018-06-25] MEDS: HYDROmorphone 1 MG INJ. 1 MG/ML AMPUL IVP PRN (17:13)
--- NOTE | 2018-06-25 18:31 | NUR ---
CLOSING NOTE: PATIENT IS RESTING COMFORTABLY IN BED. NO S/S OF DISTRESS OR SOB. PATIENT IS ASLEEP, BUT CONFUSED WHEN AWAKE. PATIENT ON 2 L NASAL CANNULA. PATIENT ON BILATERAL RESTRAINTS. MEDINA CATHETER IS DRAINING TO GRAVITY. DAUGHTER AT BEDSIDE. WAITING FOR DR. TORRES OR DR. MEYERS TO MAKE ROUNDS. CALL LIGHT IN REACH, BED IN LOWEST POSITION, AND WILL GIVE REPORT TO NIGHT NURSE.
--- NOTE | 2018-06-25 19:31 | NUR ---
INITIAL NOTES Received handoff report from offgoing nurse at the bedside. Patient is resting comfortably in bed with eyes closed. No SOB, no acute distress, no signs of discomfort at this time. Bed is locked, in the lowest position, 2x side rails up, bed alarm is on. Daughter is at the bedside. Call light is within reach. Encouraged to call for assistance. Will continue with plan of care.
[2018-06-25] MEDS: QUEtiapine FUMARATE 25 MG TABLET PO SCH (20:11)
[2018-06-25] MEDS: CEFEPIME 1 GM in D5W 50 ML IV SCH (20:12)
--- NOTE | 2018-06-25 20:24 | NUR ---
PATIENT'S AND DAUGHTER IS AT THE BEDSIDE. PATIENT IS CURRENTLY AGITATED, SCREAMING "HELP ME," BUT UNABLE TO VERBALIZE WHAT HE NEEDS HELP WITH. PROVIDED PATIENT WITH ATIVAN 0.5MG IVP PRN PER MD ORDER, SEE EMAR FOR DETAILS.
--- NOTE | 2018-06-25 22:34 | NUR ---
PATIENT IS CURRENTLY RESTING COMFORTABLY IN BED WITH EYES CLOSED. NO SOB, NO ACUTE DISTRESS, NO SIGNS OF PAIN OR FACIAL GRIMACING. BREATHING IS EVEN AND UNLABORED WITH VISIBLE CHEST RISE AND FALL NOTED. CALL LIGHT WITHIN REACH.
--- NOTE | 2018-06-25 23:11 | NUR ---
Dr Vargas at the bedside to see the patient. Informed him that the patient has poor appetite, currently on NS IV fluids, and crackles heard in the lungs. Dr Vargas stated that he will change the fluids.
[2018-06-26] VITALS (13 sets, daily range): BP systolic 124–194
--- NOTE | 2018-06-26 00:56 | NUR ---
Patient currently resting comfortably in bed with eyes closed. No SOB, no acute distress, no signs of pain or facial grimacing noted. Bed is locked, in the lowest position, 2x side rails up, bed alarm is on. Call light is within reach. supervisor roving aware of new IVF orders and currently obtaining the IVF for the patient.
[2018-06-26] MEDS: KCL 20 mEq in D5/0.45NS 1000mL 1,000 ML IV SCH ×2 (01:06→12:50)
[2018-06-26] MEDS: LevALBUTEROL HCL 1.25 MG/0.5 ML *CONC.* VIAL.NEB (XOPENEX CONC.) INH SCH ×4 (01:37→19:44)
[2018-06-26] MEDS: HYDROmorphone 1 MG INJ. 1 MG/ML AMPUL IVP PRN ×2 (02:13→16:47)
--- NOTE | 2018-06-26 02:13 | NUR ---
Notified of patient having VTACH for 10.75 seconds, however is now sinus. Promptly went to the bedside to assist the patient. Patient is moaning, has BP of 181/98. Provided patient with Dilaudid 0.5mg IVP PRN per MD order for pain. Will continue monitoring patient closely
--- NOTE | 2018-06-26 02:30 | NUR ---
Vital signs are now WNL. See flowsheets for details.
--- NOTE | 2018-06-26 02:41 | NUR ---
Called Dr Vargas. Informed him that the patient went into [facility] for 10.75 secs, and now has occasional PVCs in bigeminy. Also informed Dr Vargas that the unit has been paging Dr Fournier (fitness specialist on-call), but Dr Fournier has not been calling back. Dr Vargas stated that he doesn't want to order anything.
--- NOTE | 2018-06-26 02:47 | NUR ---
Dr Shantanu ramos, spoke with exchange. No answer at this time according to the exchange. Will await for call back.
--- NOTE | 2018-06-26 03:12 | NUR ---
Dr Fournier called back, and I informed him that the patient had an episode of VTACH, high BP that is now controlled, but still has occasional PVCs in bigeminy. Dr Fournier ordered Amiodarone 200mg PO ONE time dose to be given now. Orders noted.
[2018-06-26] MEDS ORDERED: AMIODARONE HCL 200 MG TABLET PO ONE (03:15)
[2018-06-26] MEDS: LORazepam 2 MG/ML VIAL IVP PRN ×3 (05:13→20:04)
--- NOTE | 2018-06-26 05:13 | NUR ---
Patient had a long run of VTACH. Promptly assisted the patient at the bedside, and the patient was found with the WARP SPINNER providing incontinence care. Patient is agitated and yelling "help me." AOx1 to name only, and does not respond to verbal stimuli. BP is elevated, see flowsheets for details. Provided Catapres and Ativan PRN per MD order, see emar for details. Will continue to monitor closely.
[2018-06-26 05:43] LABS: BASOPHILS # (AUTO) 0.1 K/uL (0.0-0.2); BASOPHILS % (AUTO) 0.6 % (0.0-2.0); EOSINOPHILS # (AUTO) 0.2 K/uL (0.0-0.4); EOSINOPHILS % (AUTO) 2.3 % (0.0-4.0); HEMATOCRIT 35.7 % (36-54); HEMOGLOBIN 11.9 g/dL (14.0-18.0); LYMPHOCYTES # (AUTO) 0.9 K/uL (1.0-5.5); LYMPHOCYTES % (AUTO) 9.4 % (20.5-51.5); MEAN CORPUSCULAR HEMOGLOBIN 32 pg (27-31); MEAN CORPUSCULAR HGB CONC 33 % (32-36); MEAN CORPUSCULAR VOLUME 95 fL (79.0-98.0); MONOCYTES % (AUTO) 10.4 % (1.7-9.3); NEUTROPHILS # (AUTO) 7.9 K/uL (1.8-7.7); NEUTROPHILS % (AUTO) 77.3 % (40.0-70.0); PLATELET COUNT (AUTO) 170 K/uL (130-430); RED BLOOD CELL COUNT(AUTO) 3.78 MIL/uL (4.2-6.2); RED CELL DISTRIBUTION WIDTH 13.2 % (9.0-15.0); WHITE BLOOD COUNT (AUTO) 10.1 K/uL (4.8-10.8)
--- NOTE | 2018-06-26 05:50 | NUR ---
Patient now resting comfortably in bed with eyes closed. No SOB, no acute distress, no signs of facial grimacing of pain. Will continue to monitor closely.
[2018-06-26] MEDS: INSULIN REGULAR, HUMAN 100 UNITS/ML, 10 ML VIAL (novoLIN R) SUBCUT PRN ×2 (06:03→20:21)
[2018-06-26 06:30] LABS: ANION GAP 9 (5-15); CALCIUM 8.3 mg/dL (8.4-11.0); CHLORIDE 107 mmol/L (98-107); CREATININE 0.92 mg/dL (0.55-1.30); GLUCOSE 163 mg/dL (70-99); POTASSIUM 3.7 mmol/L (3.5-5.1); SODIUM SERUM 144 mmol/L (136-145); UREA NITROGEN, BLOOD 11 mg/dL (8-21)
[2018-06-26 06:43] LABS: ALANINE AMINOTRANSFERASE 22 U/L (12-78); ALBUMIN 2.3 g/dL (3.4-4.8); ASPARTATE AMINOTRANSFERASE 18 U/L (10-37); LIPASE 54 U/L (73-393); TOTAL BILIRUBIN 0.9 mg/dL (0.0-1.0)
--- NOTE | 2018-06-26 07:17 | NUR ---
CLOSING NOTES Handoff report given to oncoming dayshift nurse at the bedside. Patient is resting comfortably in bed with eyes closed. No SOB, no acute distress, no signs of pain or facial grimacing. Breathing is even and unlabored with visible chest rise and fall noted. Bed is locked, in the lowest position, 3x side rails up, bed alarm is on. Call light is within reach. Fall and safety precautions maintained. All needs have been met during this shift.
--- NOTE | 2018-06-26 08:00 | NUR ---
opening note: received report from night nurse. patient is resting in bed. patient on 3L nasal cannula. Patient with labored breathing. IV fluids infusing. mcmillan draining to gravity. Blood pressure was elevated. Dr. Henrietta ramos. Patient is unable to take PO medications at the time. Patient is lethargic. call light in reach, bed in lowest position, and will continue to monitor.
[2018-06-26] MEDS ORDERED: hydrALAZINE HCL 20 MG/ML VIAL IVP ONE (08:15)
--- NOTE | 2018-06-26 08:15 | NUR ---
Dr. Shrestha called back. reported blood pressure of 199/99. New IV orders given. will continue to monitor.
[2018-06-26] MEDS: CEFEPIME 1 GM in D5W 50 ML IV SCH ×2 (08:45→20:10)
[2018-06-26] MEDS: AMIODARONE HCL 200 MG TABLET PO SCH ×2 (08:47→20:25)
[2018-06-26] MEDS: TAMSULOSIN HCL 0.4 MG CAP PO SCH (08:47)
[2018-06-26] MEDS: prednisoLONE 1% OPHTHALMIC SUSPN 5 ML OP SCH ×4 (08:47→20:11)
[2018-06-26] MEDS: METOPROLOL TARTRATE 25 MG TABLET PO SCH ×2 (08:47→20:25)
[2018-06-26] MEDS: HYDROcodone/ACETAMIN 10-325 MG TAB PO SCH ×2 (08:48→20:26)
--- NOTE | 2018-06-26 10:00 | NUR ---
RN ROUNDS PATIENT IS RESTING COMFORTABLY IN BED. NO S/S OF DISTRESS OR SOB. BLOOD PRESSURE REMAINS ELEVATED. HIDA SCAN ON HOLD UNTIL BLOOD PRESSURE STABILIZES. NO OTHER NEEDS AT THIS TIME. CALL LIGHT IN REACH, BED IN LOWEST POSITION, AND WILL CONTINUE TO MONITOR.
--- NOTE | 2018-06-26 11:30 | NUR ---
CARDIOLOGISST DR CANNON WAS CALLED DIRECTLY RE: SUPER HIGH BP S
--- NOTE | 2018-06-26 11:33 | NUR ---
DC PLANNING Called & spoke w Dr Vargas informed pt OON. Gave order stable to transfer to contracted hospital, Tele LOC via [facility]. Called & informed Batsheva @ [facility], ph [phone], gave her Dr Vargas's ph# for Md to . States will work on transfer w [facility] as preference. Pt's nurse Maribel teague. Addendum: 06/26/18 at 1326 by Cheyenne Ramirez RN Received call from Batsheva, no beds avail @ any of their contracted hospitals. Might have bed availability in Evening, will call [facility] directly after 1630 if bed found. Updated Caridad(dc landscape architect and planner).
[2018-06-26] MEDS ORDERED: LABETALOL 100 MG/ 20ML VIAL IVP SCH ×2 (11:45→15:00)
--- NOTE | 2018-06-26 12:47 | NUR ---
RN ROUNDS PATIENT IS RESTING COMFORTABLY IN BED. PATIENT SEEMS DISTRESSED, LABORED BREATHING NOTED AT TIMES. BLOOD PRESSURE REMAINS ELEVATED. DR. CANNON AWARE. PRN MEDICATIONS GIVEN ORDERED. WILL CONTINUE TO MONITOR AND WATCH FOR DECREASE.
--- NOTE | 2018-06-26 14:00 | NUR ---
RN ROUNDS PATIENT IS RESTING COMFORTABLY IN BED. NO S/S OF DISTRESS OR SOB. PATIENT IS SLEEPING. PATIENT ON 2 L NASAL CANNULA. BLOOD PRESSURE STABLE. HIDA SCAN TO BE DONE TOMORROW. NO PAIN MEDICATION AFTER 5AM. CALL LIGHT IN REACH, BED IN LOWEST POSITION, AND WILL CONTINUE TO MONITOR.
[2018-06-26] MEDS ORDERED: DEXTROSE 50% JECT 50 ML DISP.SYRIN IVP PRN (15:00)
[2018-06-26] MEDS ORDERED: LABETALOL 100 MG/ 20ML VIAL IVP PRN (15:00)
[2018-06-26] MEDS ORDERED: *TPN PER PHARMACY XX PRN (15:00)
--- NOTE | 2018-06-26 15:42 | NUR ---
RN Note Patient was given Tylenol 650mg supp per MD order for a mild temperature. Foam dressing was dressing was applied over head laceration.
[2018-06-26] MEDS ORDERED: ACETAMINOPHEN 650 MG SUPP.RECT RC ONE (15:46)
[2018-06-26] MEDS ORDERED: ACETAMINOPHEN 650 MG SUPP.RECT RC PRN (16:00)
--- NOTE | 2018-06-26 16:00 | NUR ---
RN ROUNDS PATIENT IS SLEEPING, EYES CLOSED. DAUGHTER IS AT BEDSIDE. EQUAL CHEST RISE AND UNLABORED BREATHING. NO NEEDS AT THIS TIME. CALL LIGHT IN REACH, BED IN LOWEST POSITION, AND WILL CONTINUE TO MONITOR.
--- NOTE | 2018-06-26 16:05 | NUR ---
Discharge Planning Packet placed at nurses' station. Awaiting bed availability at contracted hospital.
--- NOTE | 2018-06-26 16:28 | NUR ---
S.T. SWALLOW EVAL COMPLETED. DTR PRESENT. PT PRESENTS W/ SEV PRE-ORAL, ORAL, AND PHARYNGEAL DYSPHAGIA W/ POOR INTEREST FOR P.O., P.O. REFUSAL, ABSENT BOLUS MANIPULATION, AND ABSENT SWALLOW. PT IS AT RISK FOR ASPIRATION, MALNUTRITION, AND DEHYDRATION. REC: NPO - ALTERNATIVE METHOD FOR FEEDING. RE-EVAL WHEN P.O. INTEREST INCREASES. NURSE NGOC NOTIFIED. [id number] CM G8997 CM G8998 CM NOMS LEVEL 2
--- NOTE | 2018-06-26 16:50 | NUR ---
PAIN MEDICATION ADMINISTERED ORDERED. PATIENT IS AGITATION AND DISTRESS. WILL CONTINUE TO MONITOR.
--- NOTE | 2018-06-26 18:45 | NUR ---
CLOSING NOTE: PATIENT IS RESTLESS IN BED. PATIENT IS BECOMING MORE AGITATED, KEEPS REMOVING TELEMETRY STRIPS. PICC LINE IS INFUSING FLUIDS. PER DR. TORRES OKAY TO KEEP PATIENT ON FLUIDS. FLUIDS TO BE REMOVED WHEN TPN STARTS. FAMILY IS AWARE. ALL NEEDS MET DURING SHIFT. CALL LIGHT IN REACH, BED IN LOWEST POSITION, AND WILL GIVE REPORT TO NIGHT NURSE.
--- NOTE | 2018-06-26 19:00 | NUR ---
DR. TORRES PAGED TO REQUEST ORDER FOR RESTRAINTS. PATIENT IS TOO AGITATED, TRYING TO MOVE FROM BED, REMOVING NASAL CANNULA, REMOVING TELEMETRY TRIPS. NIGHT NURSE AWARE.
--- NOTE | 2018-06-26 19:08 | NUR ---
Initial notes Received patient in bed awake but confused. Appear agitated at this time trying to get up from bed unassisted ,trying to pull out tubes and wont let his n/cannula in. Saturating at 89 without 02 supplement. V/S arer wnl. All extremities are weak. PICC noted to noted no infiltrate and with good blood return. Discussed plan of care with patient and verbalized understanding. Will cont to monitor.
--- NOTE | 2018-06-26 19:50 | NUR ---
Augustin wrist soft restraint Page and called Dr Vargas and notified him about patient being confused, disoriented and pulling his lines. Dr Vargas ordered soft wrist augustin restraint to continue with treatment and for patient's safety. Will monitor patient.
[2018-06-26] MEDS: QUEtiapine FUMARATE 25 MG TABLET PO SCH (20:26)
--- NOTE | 2018-06-26 21:22 | NUR ---
CALLED AND SPOKE WITH [facility], ph [phone] AND THEY INFORMED THAT THERE IS STILL NO BED AVAILABLE
--- NOTE | 2018-06-27 00:08 | NUR ---
Patient is resting comfortably with eyes close. NO s/s of any distress noted. V/S are wnl. Will monitor.
[2018-06-27] MEDS: LORazepam 2 MG/ML VIAL IVP PRN ×3 (01:26→18:43)
[2018-06-27 01:35] VITALS: BP_SYST 179
[2018-06-27] MEDS: LevALBUTEROL HCL 1.25 MG/0.5 ML *CONC.* VIAL.NEB (XOPENEX CONC.) INH SCH ×4 (01:39→20:10)
--- NOTE | 2018-06-27 01:50 | NUR ---
Rounds Patient is restless and was agitated constantly moving in bed . Admin Ativan for anxiety as ordered.Call light in reach, will cont to monitor.
--- NOTE | 2018-06-27 03:50 | NUR ---
Rounds Patient is resting comfortably at this time. No c/o pain and no s/s of any distress noted. Call light in reach, will cont to monitor.
[2018-06-27] MEDS: HYDROmorphone 1 MG INJ. 1 MG/ML AMPUL IVP PRN ×3 (04:21→21:28)
[2018-06-27] MEDS: KCL 20 mEq in D5/0.45NS 1000mL 1,000 ML IV SCH ×3 (04:22→18:00)
--- NOTE | 2018-06-27 04:40 | NUR ---
Admin Dilaudid Patient is moaning appear to be in pain. This nurse asked if he is in patient and patient answered "Yes". Admin Dilaudid PRN for pain. Will cont to monitor.
--- NOTE | 2018-06-27 06:50 | NUR ---
Hida scan quill picking machine operator at 0900 Nuclear meds will quill picking machine operator patient at 0900. Nuclear meds requested to ask MD to give Ativan before test. Patient will be NPO and no mophine, dilaudid and norco prior.
--- NOTE | 2018-06-27 06:52 | NUR ---
End of shift notes Patient is resting at this time. No s/s of any distress noted. All needs met and anticipated by noc nurse.Call light in reach, bed alarm on and side rails up x3.Will endorse to incoming nurse.
[2018-06-27 07:49] VITALS: BP_SYST 148
[2018-06-27 08:00] VITALS: BP_SYST 158
--- NOTE | 2018-06-27 08:00 | NUR ---
Opening notes Received pt AAox1. Lying with the HOB elevated. Pt reoriented to time, place and date. Bilateral restraints with good circulation. Repositioned for comfort. Pt failed the swallow eval and remains NPO. Pt is for HIDA Scan today. Not in acute distress. siderails up x2 for safety.
[2018-06-27 08:32] LABS: ANION GAP 6 (5-15); CHLORIDE 109 mmol/L (98-107); POTASSIUM 3.2 mmol/L (3.5-5.1); SODIUM SERUM 144 mmol/L (136-145)
[2018-06-27 08:33] LABS: ALANINE AMINOTRANSFERASE 21 U/L (12-78); ALBUMIN 1.9 g/dL (3.4-4.8); ASPARTATE AMINOTRANSFERASE 20 U/L (10-37); CALCIUM 8.1 mg/dL (8.4-11.0); CREATININE 0.86 mg/dL (0.55-1.30); GLUCOSE 155 mg/dL (70-99); TOTAL BILIRUBIN 0.7 mg/dL (0.0-1.0); UREA NITROGEN, BLOOD 11 mg/dL (8-21)
[2018-06-27 08:34] LABS: PHOSPHORUS 2.4 mg/dL (2.7-4.5); TRIGLYCERIDES 73 mg/dL (30-150)
[2018-06-27] MEDS: CEFEPIME 1 GM in D5W 50 ML IV SCH ×2 (09:15→22:35)
--- NOTE | 2018-06-27 09:45 | NUR ---
Spoke with Nuclear Med spoke with Clari, Clari informed me that her machine is down at the moment but she is trying to fix it if possible, will keep updated whether machine will work and if HIDA scan can be done, will follow up as needed.
--- NOTE | 2018-06-27 09:57 | NUR ---
Ely Vargas for orders regarding AM PO medications, patient is NPO failed swallowing evaluation, TPN order present, need clarification if ok to hold PO meds or if alternate medications can be given. Addendum: 06/27/18 at 1003 by Adalid Cancino RN Dr. Vargas at [facility], inquired about medications, MD stated to try to crush medication and place in applesauce, if patient can tolerate then continue as ordered, if patient cannot tolerate then inform MD, will follow up.
[2018-06-27] MEDS: HYDROcodone/ACETAMIN 10-325 MG TAB PO SCH ×2 (10:23→21:00)
[2018-06-27] MEDS: METOPROLOL TARTRATE 25 MG TABLET PO SCH ×2 (10:24→21:00)
[2018-06-27] MEDS: TAMSULOSIN HCL 0.4 MG CAP PO SCH (10:25)
[2018-06-27] MEDS: AMIODARONE HCL 200 MG TABLET PO SCH ×2 (10:25→21:00)
[2018-06-27] MEDS: prednisoLONE 1% OPHTHALMIC SUSPN 5 ML OP SCH ×4 (10:44→22:43)
[2018-06-27] MEDS ORDERED: POTASSIUM CHLORIDE 20 MEQ/PKT PACKET PO ONE (11:15)
[2018-06-27 12:00] VITALS: BP_SYST 155
--- NOTE | 2018-06-27 12:13 | NUR ---
Paged Dr. Niels Melton admissions dean, patient's daughter, Marguerite very concerned about the patient not receiving his wellbutrin medication that he takes at home, insisting that patient starts this medication again, paged Dr. Melton for orders.
--- NOTE | 2018-06-27 12:29 | NUR ---
Attempt to call [facility] to follow up about HIDA scan, no answer, will continue to follow up. Addendum: 06/27/18 at 1258 by Adalid Cancino RN spoke with Clari, most likely HIDA scan will not be done until 5pm or until tomorrow, will report to Dr. Rhoades.
--- NOTE | 2018-06-27 14:38 | NUR ---
Dr. Alicia ramos for orders regarding medications and to inform that HIDA scan will be performed most likely tomorrow, will follow up as needed. Addendum: 06/27/18 at 1501 by Adalid Cancino RN Call back received ok to continue home medication Wellbutrin.
--- NOTE | 2018-06-27 16:30 | NUR ---
DC Restraints patient is quiet, not pulling out lines, family is at bedside, continuing to monitor.
--- NOTE | 2018-06-27 16:41 | NUR ---
Dr. Rhoades rounds informed that HIDA scan will be done tomorrow, will follow up with any new orders.
--- NOTE | 2018-06-27 16:49 | NUR ---
Called Pharmacy to verify one time dose of Wellbutrin, family persistent about giving patient one time dose as soon as possible.
--- NOTE | 2018-06-27 16:54 | NUR ---
Called RT patient family concerned that he is short of breath, patient is on 2L via Nasal Cannula O2 sat at 95% at this time, put patient on 4L via Nasal Cannula and called RT to administered PRN breathing treatment, continuing to monitor.
[2018-06-27 17:00] VITALS: BP_SYST 137
--- NOTE | 2018-06-27 17:10 | NUR ---
Nutrition F/U Admitting Diagnosis Pneumonia Reviewed Pertinent Medical/Surgical Hx Medical Record Patient Family Member Medical History Comment: PMH: DM, HLD, Benign Prostate Hypertrophy, chronic abd pain per MD notes. Pt also found w/: acute cardiac arrhythmia, acute colitis, acute metabolic encephalopathy, dehydration, DM, severe malnutrition, sepsis per MD notes. 06/27/18 MD Progress Notes: acute colitis, acute metabolic encephalopathy, BPH w/ urinary retention, HTN Subjective Information Pt seen resting in bed w/ daughter at bedside. Daughter was concerned that pt is not himself as he is weak and hasn't eaten well since admission. RD reassured pt's daughter that pt will receive nutrition via TPN starting this evening as per pharmacy protocol. Pt failed swallow eval on 06/26/18 -- ST rec for alternative method for nutrition and re-eval when PO interest increases. Pt is not yet meeting optimal nutritional needs. Current Diet Order/Nutrition Support NPO x1 day Patient/Significant Other Unable To Verbalize Education Provided Not Indicated Pertinent Medications KCl/D5%/NaCl IV, dulcolax suppository, zofran, SSI Pertinent Labs BG 155 H, POC BG 184 H, ALB 1.9 L, H/H 11.9 L/35.7 L, ALP 44 L, HgA1c 6.2 H, K 3.2 L Height (Feet) 5 feet Height (Inches) 6.00 inches Weight (Pounds) 129 pounds. NEW WT: 148 lb/67 kg (06/24/18 -- likely taken by nursing staff). BEDSCALE WT: 145 lb (06/27/18) Weight (Calculated Kilograms) 58.039569 kilograms Patient Weight 58.513 kg UBW 130 lb per daughter report -- 06/27/18 Body Mass Index 20.82 kg/m2 %IBW 91 Cadet/Adjusted Body Weight 142 lb, 65 kg Recent Weight Change No - per EMR Weight Status Appropriate Gastrointestinal Symptoms None Food Allergies No - per daughter Usual Diet At Home regular diet per daughter Skin Integrity Comment: Driss scale: 13; per nursing notes, lateral L head w/ vibha d/t fall; L/R arm w/ dark discoloration Current % PO Negligible -- 5% average x2 meals NEW Estimated Energy Expenditure (kcals/day) 5801-0107 kcal/day (25-30 kcal/kg CBW for maintenance) NEW Estimated Protein Required (g/day) 80 gm/day (1.2 gm/kg CBW for maintenance) Estimated Fluid Required (l/day) 1.8-2 L/day (1ml/calorie for dehydration) Problem/Etiology/Signs/Symptoms Inadequate nutritional intake related to mental status as evidenced by confused state and 33% poor PO intake. *ongoing Increased nutritional needs related to metabolic demands as evidenced by estimated calorie and protein needs for sepsis. *ongoing Expected Outcomes/Goals Monitor pt appetite and PO intake w/ goal of pt meeting at least 75% of estimated nutritional needs, labs trending WNL, normal GI function, skin integrity/wt maintenance. Dietitian Recommendations * Recommend continuing TPN D50%, AA8.5% at 42 ml/hr, IL20% at 5 ml/hr daily via central line Provides: 1268 kcal/day, 43 gm protein/day, 1128 ml free water/day, and GIR: 2.6 gm CHO/kg/min Meets: 76% of lower end of estimated caloric needs and 54% of estimated protein needs Follow Up High Risk: F/U in 2-3 days
--- NOTE | 2018-06-27 17:21 | NUR ---
Dietitian Recommendations * Recommend continuing TPN D50%, AA8.5% at 42 ml/hr, IL20% at 5 ml/hr daily via central line Provides: 1268 kcal/day, 43 gm protein/day, 1128 ml free water/day, and GIR: 2.6 gm CHO/kg/min Meets: 76% of lower end of estimated caloric needs and 54% of estimated protein needs LP, RD Please refer to Nutrition F/U for details.
[2018-06-27] MEDS: LevALBUTEROL HCL 1.25 MG/0.5 ML *CONC.* VIAL.NEB (XOPENEX CONC.) INH PRN (17:25)
[2018-06-27] MEDS: BISACODYL 10 MG/SUPPOSITORY RC PRN (17:54)
[2018-06-27] MEDS: buPROPion HCL 100 MG TABLET.SA PO SCH ×2 (18:09→20:58)
--- NOTE | 2018-06-27 18:10 | NUR ---
Wellbutrin attempted to administer one time 1500 dose of Wellbutrin to patient at family request, patient was previously too drowsy to take medication, upon attempt to administer medication crushed in apple sauce patient spit medication and apple sauce out.
[2018-06-27] MEDS: FAT EMULSIONS 250 ML IV SCH (18:21)
[2018-06-27] MEDS: TPN CENTRAL IV SCH ×8 (18:22)
[2018-06-27] MEDS: [UNRECOGNIZED DRUG - OTHER] IV SCH ×8 (18:22)
[2018-06-27] MEDS: K PHOS IV SCH ×8 (18:22)
[2018-06-27] MEDS: POTASSIUM CHLORIDE IV SCH ×8 (18:22)
[2018-06-27] MEDS: INSULIN REGULAR, HUMAN 100 UNITS/ML, 10 ML VIAL (novoLIN R) SUBCUT PRN ×2 (18:40→22:46)
--- NOTE | 2018-06-27 18:58 | NUR ---
Closing note patient resting in bed, agitated, IV ativan given, family at bedside with patient, all needs met, will endorse report to NOC shift nurse, bed in lowest position, three side rails up, bed alarm on, bed close to nursing station, fall and aspiration precautions in place.
[2018-06-27 19:05] VITALS: BP_SYST 148
--- NOTE | 2018-06-27 19:05 | NUR ---
Initial Notes Received patient in bed awake but confused very restless in bed. Daughter at bedside trying to help to calm patient. GLADYS picc noted with TPN and IV fluids running as ordered. F/C noted with cloudy dark yellow urine in the bag. Discuss plan of care with family and verbalized understanding, will cont to monitor.
[2018-06-27] MEDS: QUEtiapine FUMARATE 25 MG TABLET PO SCH (20:59)
--- NOTE | 2018-06-27 21:05 | NUR ---
Rounds Patient is restless trying to get up from bed unassisted daughter at bedside. Will give due psychotropic meds.
--- NOTE | 2018-06-27 23:05 | NUR ---
Rounds Patient is resting comfortably at this time. No s/s of any distress noted. Call light in reach, will cont to monitor.
[2018-06-28 00:26] VITALS: BP_SYST 146
[2018-06-28] MEDS: LevALBUTEROL HCL 1.25 MG/0.5 ML *CONC.* VIAL.NEB (XOPENEX CONC.) INH SCH ×4 (00:56→19:15)
--- NOTE | 2018-06-28 02:20 | NUR ---
Admin Ativan for anxiety Patient is very agitated, constantly moving and pulling tubes in bed . Admin Ativan prn for anxiety. Call light in reach, will cont to monitor.
[2018-06-28] MEDS: LORazepam 2 MG/ML VIAL IVP PRN ×3 (02:31→21:05)
[2018-06-28] MEDS: HYDROmorphone 1 MG INJ. 1 MG/ML AMPUL IVP PRN ×3 (05:54→16:32)
--- NOTE | 2018-06-28 06:00 | NUR ---
Admin Dilaudid Patient was asking for help and this nurse asked him if he is in pain patient responded"Yes". Patient cant verbally say where the pain and what is the pain level. Admin Dilaudid as ordered. Will cont to monitor.
[2018-06-28] MEDS: INSULIN REGULAR, HUMAN 100 UNITS/ML, 10 ML VIAL (novoLIN R) SUBCUT PRN ×4 (06:03→22:20)
--- NOTE | 2018-06-28 06:57 | NUR ---
End of shift note Patient resting with eyes close, appear to be comfortable. No s/s of distress noted. All needs met and anticipated by noc nurse. Call light in reach, bed alarm on and side rtails up x4. Endorse.
--- NOTE | 2018-06-28 08:00 | NUR ---
Opening Note Report received from [facility] shift nurse. Patient is currently sleeping in bed. No signs of acute distress noted at the moment. RUE PICC line is running D51/2NS+20kcl@50, lipids@45, and tpn@42. Bingham cath is draining yellow urine. 02 is 94% on 2l. Bed is in lowest position and locked. Will continue to closely monitor.
[2018-06-28 08:11] VITALS: BP_SYST 144
[2018-06-28] MEDS: buPROPion HCL 100 MG TABLET.SA PO SCH ×3 (09:00→21:00)
[2018-06-28] MEDS: METOPROLOL TARTRATE 25 MG TABLET PO SCH ×3 (09:00→21:00)
[2018-06-28] MEDS: AMIODARONE HCL 200 MG TABLET PO SCH ×3 (09:00→21:00)
[2018-06-28] MEDS: HYDROcodone/ACETAMIN 10-325 MG TAB PO SCH ×3 (09:00→21:00)
[2018-06-28] MEDS: TAMSULOSIN HCL 0.4 MG CAP PO SCH (09:00)
[2018-06-28] MEDS: CEFEPIME 1 GM in D5W 50 ML IV SCH ×2 (09:19→22:14)
[2018-06-28] MEDS: prednisoLONE 1% OPHTHALMIC SUSPN 5 ML OP SCH ×4 (10:11→22:14)
--- NOTE | 2018-06-28 10:32 | NUR ---
Rounds Attempted to give the patient PO meds now that he is awake. Unfortunately, the spit out all of his medications
--- NOTE | 2018-06-28 11:00 | NUR ---
CM DC PLANNING: TO CONTRACTED HOSPITAL CM CALLED TO [facility]: [phone] AND [phone], WELL , BROOKS/ERICH GILLIS AT [phone]. MESSAGES LEFT AT 1100, 1330, & 1445. [facility]OOKS SPOKE WITH [facility] BED CONTROL MARÍA ELENA AROUND 1430 WHO STATED THAT OBTAINING A BED WOULD NOT BE POSSIBLE WITHOUT COMMUNICATION FROM [facility]; AND, HE IS AWARE THAT NO ONE IS AVAILABLE IN OFFICE. AT 1610, CM SPOKE WITH HOSPITAL REFRIGERATION SUPERVISOR/DARCY WHO CONNECTED CM WITH ER CM REFRIGERATION SUPERVISOR/DULCE CARPIO WHO STATED TYPICALLY TRANSFERS IN NETWORK ARE USUALLY TRANSFERRED DURING THE WEEK UNLESS EMERGENT AND ADMITTED THROUGH ED. CM INFORMED OF AVAILABLE BROOKS/GERARDO AT [phone] NUMBER ON 06/29/18; AND CM WILL F/UP ABOUT TRANSFER TOMORROW OR ON SATURDAY TO IN-NETWORK FACILITY. BROOKS SPOKE WITH Pt's DTR/YASMANY SEVERAL TIMES WHO WAS QUITE DISTRAUGHT ABOUT Pt NOT GETTING BETTER; AND, NOT SATISFIED WITH CURRENT HOSPITALIST/DR. TORRES, BUT, VERBALIZED DESIRE TO CHANGE TO COVERING MD/DR. MEYERS. DTR VERBALIZED SHE IS CONCERNED THAT Pt IS VERY DEPRESSED; HE HAS NOT BEEN TAKING HIS ROUTINE MEDS, ESPECIALLY HIS WELLBUTRIN FOR DEPRESSION; AND, WHEN IT WAS OFFERED TODAY WITH APPLESAUCE, Pt SPIT THE FOOD AND MEDICATION OUT. DTR STATED SHE WANTED TO SPEAK WITH PSYCHIATRIST WHEN HE COMES TO EVALUATE Pt Pt IS NOT ABLE TO EXPRESS HIMSELF. BROOKS UPDATED ON NO DC TODAY; AND, CM WILL F/UP WITH DTR AGAIN ON 06/29/18. BROOKS UPDATED DANYELLE/SHRUTHI ABOUT Pt's DTR's WISHES; AND, SHE WILL F/UP WITH DR. MEYERS ON 06/29/18. Addendum: 06/28/18 at 1937 by Mandi Small RN 1829: CM UNDERSTOOD FROM DOMINIC/ARELI AND DANYELLE/SHRUTHI THAT Pt HAS BEEN UNABLE TO TAKE HIS ORAL MEDS SINCE ADMITTED DUE TO NPO STATUS FOR DIAGNOSTICS; THAT Pt HAS HAD PSYCH EVAL ALREADY; & THEY WILL F/UP WITH PSYCH MD FOR F/UP EVALUATION. ADD'LLY, ALL MDs AND NURSING HAVE ALL BEEN KEEPING Pt's DTRs UPDATED ABOUT HIS MEDICAL STATUS SINCE ADMISSION. CM WILL FURTHER F/UP WITH Pt's ANN/YASMANY ON 06/29/18.
[2018-06-28 12:23] VITALS: BP_SYST 137
--- NOTE | 2018-06-28 12:32 | NUR ---
Rounds Patient is sleeping in bed. Bed is locked and in the lowest position
--- NOTE | 2018-06-28 13:17 | NUR ---
Called Called Dr. Shrestha for orders.
--- NOTE | 2018-06-28 14:04 | NUR ---
THIRD PAGE FOR DR RYAN FOR ORDERS
[2018-06-28] MEDS ORDERED: FUROSEMIDE 20 MG/2 ML VIAL IVP ONE ×2 (14:15)
[2018-06-28] MEDS ORDERED: FUROSEMIDE 20 MG/2 ML VIAL ONE (14:24)
--- NOTE | 2018-06-28 14:45 | NUR ---
Spoke with Spoke with Dr. Fournier, who is covering for Dr. Shrestha, order for LAsix 20mg IVP obtained.
[2018-06-28 16:12] VITALS: BP_SYST 138
--- NOTE | 2018-06-28 16:30 | NUR ---
Rounds Patient is very restless. Provided reorientation. Family is at the bedside,
[2018-06-28] MEDS: LevALBUTEROL HCL 1.25 MG/0.5 ML *CONC.* VIAL.NEB (XOPENEX CONC.) INH PRN (16:39)
[2018-06-28] MEDS: POTASSIUM CHLORIDE IV SCH ×8 (17:31)
[2018-06-28] MEDS: K PHOS IV SCH ×8 (17:31)
[2018-06-28] MEDS: [UNRECOGNIZED DRUG - OTHER] IV SCH ×8 (17:31)
[2018-06-28] MEDS: TPN CENTRAL IV SCH ×8 (17:31)
[2018-06-28] MEDS: FAT EMULSIONS 250 ML IV SCH (17:33)
[2018-06-28] MEDS: KCL 20 mEq in D5/0.45NS 1000mL 1,000 ML IV SCH (17:58)
--- NOTE | 2018-06-28 18:33 | NUR ---
Closing Note Patient is currently less restless. Dr. Jones rounded on the patient earlier and spoke with the family. RUE PICC line is running D51/2ns+20kcl@50, TPN@42, and lipids@5. Bingham cath is draining clear yellow urine. o2 is at 2l via NC. Will endorse care to the oncoming nurse.
[2018-06-28 20:00] VITALS: BP_SYST 158
--- NOTE | 2018-06-28 20:00 | NUR ---
Initial note: Received report from harley RN. Patient in bed resting, no acute distress noted. 2L NC in place, patient tolerating well. GLADYS double-lumen PICC line noted receiving TPN at 42 ML/HR, Lipids at 5 ML/HR, and KCl 20 mEq in D5 1/2NS at 50 ML/HR. PICC line flushes well and has good blood return. Bingham catheter noted draining yellow urine to gravity. Call light with patient. Safety and fall precautions in place. Will continue with plan of care.
[2018-06-28] MEDS: QUEtiapine FUMARATE 25 MG TABLET PO SCH ×2 (20:47→21:00)
--- NOTE | 2018-06-28 21:05 | NUR ---
Ativan: Patient is restless and agitated. PRN Ativan indicated. Administered Ativan via patient's GLADYS PICC. Call light with patient. Will continue monitoring.
--- NOTE | 2018-06-28 22:03 | NUR ---
Rounds: Patient resting in bed, no acute distress noted. Tolerating 2L NC, respirations even and unlabored. Call light with patient. Will continue to monitor.
[2018-06-28 23:40] VITALS: BP_SYST 159
[2018-06-29] MEDS: HYDROmorphone 1 MG INJ. 1 MG/ML AMPUL IVP PRN ×5 (00:07→19:48)
--- NOTE | 2018-06-29 00:07 | NUR ---
Pain management: Patient is awake in bed yelling. Asked patient if he is in pain, patient said yes, but unable to verbalize location or rating due to altered mentation. Administered PRN Dilaudid 0.5 MG per MD order via patient's GLADYS PICC line, patient tolerated well. Call light with patient. Will continue monitoring.
[2018-06-29] MEDS: LevALBUTEROL HCL 1.25 MG/0.5 ML *CONC.* VIAL.NEB (XOPENEX CONC.) INH SCH ×4 (01:00→19:45)
--- NOTE | 2018-06-29 01:20 | NUR ---
PICC dressing change: PICC line dressing change due, changed by RN at this time. Sterile technique used. PICC securement device and antimicrobial patch applied. Site covered with transparent dressing. Patient tolerated well. Call light with patient. Will continue to monitor.
--- NOTE | 2018-06-29 02:31 | NUR ---
Rounds: Patient is resting in bed with eyes closed. Does not show signs or symptoms of acute distress. Patient's breathing is even and unlabored on 2L NC. Call light with patient. Will continue to monitor.
--- NOTE | 2018-06-29 04:11 | NUR ---
Pain management: Patient is awake and yelling. Asked him if he has pain, patient said "yes", but unable to state location of pain or rating due to cognitive limitations. PRN Dilaudid 0.5 MG indicated. Administered medication per MD order, patient tolerated well. Call light is with patient. Will continue monitoring.
[2018-06-29] MEDS: INSULIN REGULAR, HUMAN 100 UNITS/ML, 10 ML VIAL (novoLIN R) SUBCUT PRN ×3 (06:07→20:35)
--- NOTE | 2018-06-29 06:10 | NUR ---
Closing note: Patient is in bed, no signs or symptoms of acute distress. GLADYS PICC line remains patent and benign receiving TPN at 42 ML/HR, Lipids at 5 ML/HR, and KCl 20 mEq in D5 1/2NS at 50 ML/HR. Bingham catheter remains draining well to gravity. Most recent blood sugar was 182, 2 units regular insulin administered subcutaneously per MD order. All needs met, attended to. Will endorse care to dayshift RN.
[2018-06-29] MEDS: LORazepam 2 MG/ML VIAL IVP PRN ×3 (06:39→20:03)
--- NOTE | 2018-06-29 06:39 | NUR ---
Ativan: Found patient with legs over side rails, PRN Ativan 0.25 MG indicated. Administered medication intravenously via GLADYS PICC line, patient tolerated well. Call light with patient.
--- NOTE | 2018-06-29 08:00 | NUR ---
OPENING NOTE: RECEIVED REPORT FROM NIGHT NURSE. PATIENT IS RESTLESS IN BED. PATIENT FOUND STRIPPING OFF GOWN. PATIENT WILL NOT KEEP O2 NASAL CANNULA ON. PATIENT ATTEMPTED TO REORIENT AND EXPLAINS NASAL CANNULA USE, BUT UNABLE TO COMPREHEND. PATIENT IS AWAKE BUT CONFUSED. PICC ON RIGHT UPPER ARM IN PATENT AND INFUSING FLUIDS, TPN, AND LIPIDS. DRESSING REMAINS CLEAN, DRY, AND INTACT. MEDINA IS DRAINING TO GRAVITY. PATIENT ON LOW AIR MATTRESS AND WITH SCD'S. VITAL SIGNS UPDATED IN FLOWSHEET. CALL LIGHT IN REACH, BED IN LOWEST POSITION, AND WILL CONTINUE TO MONITOR.
[2018-06-29 08:15] VITALS: BP_SYST 159
[2018-06-29 08:47] LABS: CHLORIDE 100 mmol/L (98-107); POTASSIUM 3.8 mmol/L (3.5-5.1); SODIUM SERUM 135 mmol/L (136-145)
[2018-06-29] MEDS: CEFEPIME 1 GM in D5W 50 ML IV SCH ×2 (08:47→20:13)
[2018-06-29 08:48] LABS: ALANINE AMINOTRANSFERASE 29 U/L (12-78); ANION GAP 10 (5-15); ASPARTATE AMINOTRANSFERASE 23 U/L (10-37); CALCIUM 8.2 mg/dL (8.4-11.0); CREATININE 0.89 mg/dL (0.55-1.30); GLUCOSE 198 mg/dL (70-99); TOTAL BILIRUBIN 0.7 mg/dL (0.0-1.0); UREA NITROGEN, BLOOD 14 mg/dL (8-21)
[2018-06-29 08:49] LABS: ALBUMIN 2.2 g/dL (3.4-4.8); PHOSPHORUS 3.7 mg/dL (2.7-4.5)
[2018-06-29] MEDS: prednisoLONE 1% OPHTHALMIC SUSPN 5 ML OP SCH ×4 (08:57→20:13)
[2018-06-29] MEDS: METOPROLOL TARTRATE 25 MG TABLET PO SCH ×2 (08:57→21:00)
[2018-06-29] MEDS: HYDROcodone/ACETAMIN 10-325 MG TAB PO SCH ×2 (08:57→21:00)
[2018-06-29] MEDS: AMIODARONE HCL 200 MG TABLET PO SCH ×3 (08:57→21:00)
[2018-06-29] MEDS: TAMSULOSIN HCL 0.4 MG CAP PO SCH (08:57)
[2018-06-29] MEDS: buPROPion HCL 100 MG TABLET.SA PO SCH ×2 (08:57→21:00)
[2018-06-29 09:23] LABS: HEMATOCRIT 34.8 % (36-54); HEMOGLOBIN 11.6 g/dL (14.0-18.0); MEAN CORPUSCULAR HEMOGLOBIN 31 pg (27-31); MEAN CORPUSCULAR HGB CONC 33 % (32-36); MEAN CORPUSCULAR VOLUME 94 fL (79.0-98.0); PLATELET COUNT (AUTO) 273 K/uL (130-430); RED BLOOD CELL COUNT(AUTO) 3.69 MIL/uL (4.2-6.2); RED CELL DISTRIBUTION WIDTH 12.7 % (9.0-15.0); WHITE BLOOD COUNT (AUTO) 10.5 K/uL (4.8-10.8)
[2018-06-29 09:24] LABS: BASOPHILS % (AUTO) 0.3 % (0.0-2.0); EOSINOPHILS # (AUTO) 0.5 K/uL (0.0-0.4); LYMPHOCYTES # (AUTO) 1.1 K/uL (1.0-5.5); LYMPHOCYTES % (AUTO) 10.5 % (20.5-51.5); MONOCYTES # (AUTO) 0.7 K/uL (0.0-1.0); MONOCYTES % (AUTO) 6.3 % (1.7-9.3); NEUTROPHILS # (AUTO) 8.2 K/uL (1.8-7.7); NEUTROPHILS % (AUTO) 77.9 % (40.0-70.0)
[2018-06-29] MEDS: KCL 20 mEq in D5/0.45NS 1000mL 1,000 ML IV SCH (10:00)
--- NOTE | 2018-06-29 10:00 | NUR ---
RN ROUNDS PATIENT IS RESTING IN BED. OPENS EYES SPONTANEOUSLY AND CALL OUT SAYING "HELP". PATIENT UNABLE TO SAY MORE THAN THAT WORD AND UNABLE TO POINT WHERE THERE IS PAIN. PATIENT CONSTANTLY PULLING OFF TELEMETRY STRIPS AND TAKES OUT NASAL CANNULA. PATIENT REPOSITIONED. CALL LIGHT IN REACH, BED IN LOWEST POSITION, AND WILL CONTINUE TO MONITOR.
[2018-06-29 11:36] VITALS: BP_SYST 115
--- NOTE | 2018-06-29 12:00 | NUR ---
RN ROUNDS PATIENT IS RESTING RESTLESSLY IN BED. DAUGHTER AT BEDSIDE. UNABLE TO MAINTAIN NASAL CANNULA ON PATIENT. DAUGHTER AT BEDSIDE. CALL LIGHT IN REACH, BED IN LOWEST POSITION, AND WILL CONTINUE TO MONITOR.
--- NOTE | 2018-06-29 14:15 | NUR ---
RN ROUNDS PATIENT IS LAYING IN BED. PATIENT IS AGITATED. NASAL CANNULA IN PLACE AT THE MOMENT. DAUGHTER REMAINS AT BEDSIDE. PATIENT REPOSITIONED. CALL LIGHT IN REACH, BED IN LOWEST POSITION, AND WILL CONTINUE TO MONITOR.
--- NOTE | 2018-06-29 14:22 | NUR ---
DR. RYAN PAGED TO ASK FOR LASIX ORDER. PATIENT IS VERY WHEEZY. WILL CONTINUE TO MONITOR.
--- NOTE | 2018-06-29 14:40 | NUR ---
DR. MEYERS PAGED AND INFORMED OF WHEEZING, RECEIVED ORDERS FOR LASIX. UPDATED MD ON PATIENT DISTRESS AND PRN MEDICATIONS NOT WORKING, NO ORDERS GIVEN.
[2018-06-29] MEDS ORDERED: FUROSEMIDE 40 MG/4 ML VIAL IVP ONE (14:45)
--- NOTE | 2018-06-29 15:14 | NUR ---
PAIN MEDICATION PATIENT MEDICATION PER PRN ORDER. PATIENT IN A LOT OF DISTRESS AND ANSWERS YES TO HAVING PAIN. DAUGHTERS AT BEDSIDE. THEY WERE EDUCATED ON SIDE EFFECTS AND REINFORCED THE IMPORTANCE OF NASAL CANNULA TO DELIVERY SUPPLEMENTAL OXYGEN, ESPECIALLY AFTER PAIN MEDICATION. DAUGHTERS VERBALIZED UNDERSTANDING AND WILL TRY TO KEEP NASAL CANNULA ON PATIENT. CALL LIGHT IN REACH, BED IN LOWEST POSITION ,AND WILL CONTINUE TO MONITOR.
--- NOTE | 2018-06-29 16:00 | NUR ---
RN ROUNDS PATIENT IS RESTING COMFORTABLY IN BED. NO S/S OF DISTRESS OR SOB. DAUGHTERS AND GRANDDAUGHTER AT BEDSIDE. PATIENT IS FINALLY CALM. PATIENT ON 2 L NASAL CANNULA. CALL LIGHT IN REACH, BED IN LOWEST POSITION, AND WILL CONTINUE TO MONITOR.
[2018-06-29 16:20] VITALS: BP_SYST 114
[2018-06-29] MEDS ORDERED: TPN CENTRAL 0.0001 ML, SODIUM ACETATE 40 MEQ, POTASSIUM CHLORIDE 30 MEQ, K PHOS 9 MM, M... IV SCH ×9 (18:00)
--- NOTE | 2018-06-29 18:20 | NUR ---
Paged Dr. Jones dialed [phone], s/w Muna
[2018-06-29] MEDS: FAT EMULSIONS 250 ML IV SCH (18:24)
--- NOTE | 2018-06-29 18:53 | NUR ---
RE-REQUEST OF DAUGHTER TO CHANGE THE ATTENDING PHYSICIAN DAUGHTER REQUESTED TO CHANGE PATIENT'S PCP TO DR MEYERS, PER DAUGHTER SHE DOESN'T WANT DR TORRES TO TAKE CARE OF THE PATIENT. DR MEYERS MADE AWARE AND WILL BE HERE TO SPEAK TO THE DAUGHTER. PER DR. MEYERS HE CANNOT BE THE PCP BECAUSE HE IS WORKING WITH DR TORRES PATIENT FINANCIAL REP AND THEY COVER EACH OTHER.
--- NOTE | 2018-06-29 18:56 | NUR ---
CLOSING NOTE: PATIENT IS LAYING IN BED. PATIENT IS BECOMING AGITATED ONCE AGAIN. PATIENT IN A LOT OF PAIN. DAUGHTER YASMANY AT BEDSIDE. DR. MEYERS WAS AT BEDSIDE. MD TO INCREASE PAIN MEDICATION. TPN RUNNING AT 42 CC/HR, LIPIDS @10, AND IV FLUIDS NOW INFUSING @23, PER DR. MEYERS. ALL NEEDS MET DURING SHIFT. CALL LIGHT IN REACH, BED IN LOWEST POSITION, AND WILL ENDORSE CARE TO NIGHT NURSE.
--- NOTE | 2018-06-29 19:30 | NUR ---
OPENING NOTE RECEIVED CARE OF PT AND BEDSIDE REPORT. PATIENT AGITATED AND IN PAIN. PT ON O2 AT 2L VIA NASAL CANNULA. DAUGHTER, YASMANY, AT BEDSIDE. PICC LINE DRESSING IS CLEAN AND INTACT, BLOOD RETURN AND FLUSHING WELL. TPN RUNNING AT 42 CC/HR, LIPIDS @10, AND IV FLUIDS NOW INFUSING @23, PER DR. MEYERS. MEDINA CATHETER IN PLACE AND DRAINING TO GRAVITY. CALL LIGHT IN REACH, BED IN LOWEST POSITION, SIDE RAILS UP X 3, CLOSE TO NURSING STATION. AWAITING NEW ORDERS FOR DILAUDID 1 MG IVP FOR SEVERE PAIN.
--- NOTE | 2018-06-29 19:48 | NUR ---
DILAUDID ADMINISTERED PT GIVEN DILAUDID 1 MG IVP FOR SEVERE PAIN. EDUCATION PROVIDED REGARDING MEDICATION AND POTENTIAL SIDE EFFECTS. SAFETY PRECAUTIONS ARE IN PLACE. WILL MONITOR.
[2018-06-29 20:00] VITALS: BP_SYST 105
--- NOTE | 2018-06-29 20:03 | NUR ---
ATIVAN ADMINISTERED PT GIVEN ATIVAN 0.5 MG IVP FOR AGITATION AND RESTLESSNESS. SAFETY PRECAUTIONS IN PLACE. WILL MONITOR.
[2018-06-29] MEDS: QUEtiapine FUMARATE 25 MG TABLET PO SCH (21:00)
--- NOTE | 2018-06-29 21:45 | NUR ---
AGITATION/RESTLESSNESS PT BECOMING AGITATED AND RESTLESS. CONTINUES TO TRY TO TAKE OFF NASAL CANNULA. NURSE AT BEDSIDE ENSURING PT SAFETY. SAFETY PRECAUTIONS IN PLACE. BED IN LOWEST POSITION, SIDE RAILS UP X 3, CLOSE TO NURSING STATION, CALL LIGHT WITH PT. WILL MONITOR.
[2018-06-30] MEDS: HYDROmorphone 1 MG INJ. 1 MG/ML AMPUL IVP PRN ×6 (00:09→22:27)
--- NOTE | 2018-06-30 00:10 | NUR ---
DILAUDID ADMINISTERED DILAUDID 1 MG IVP ADMINISTERED FOR SEVERE PAIN. SAFETY PRECAUTIONS IN PLACE. WILL MONITOR.
--- NOTE | 2018-06-30 00:32 | NUR ---
NURSING NOTE PT RESTING IN BED WITH EYES CLOSED. BREATHING IS EVEN AND UNLABORED TO O2 AT 2L VIA NC. IVF, TPN, AND LIPIDS INFUSING AT ORDERED RATES. MEDINA IS DRAINING WELL TO GRAVITY. SAFETY PRECAUTIONS ARE IN PLACE, SIDE RAILS UP X 3, BED ALARM ON, CALL LIGHT WITH PT, CLOSE TO NURSES STATION. WILL CONTINUE TO MONITOR.
[2018-06-30] MEDS: LevALBUTEROL HCL 1.25 MG/0.5 ML *CONC.* VIAL.NEB (XOPENEX CONC.) INH SCH ×4 (00:53→19:44)
--- NOTE | 2018-06-30 01:30 | NUR ---
AGITATED/RESTLESS PT BECOMING AGITATED AND RESTLESS IN BED. ATTEMPTING TO TAKE OFF OXYGEN. RN AT BEDSIDE ENSURING SAFETY. ALL SAFETY PRECAUTIONS IN PLACE. BED IN LOWEST POSITION, SIDE RAILS UP X 3, CALL LIGHT WITH PT, CLOSE TO NURSING STATION. WILL CONTINUE TO MONITOR.
[2018-06-30] MEDS: LORazepam 2 MG/ML VIAL IVP PRN ×2 (02:00→10:27)
--- NOTE | 2018-06-30 02:00 | NUR ---
ATIVAN ADMINISTERED ATIVAN 0.5 MG IVP ADMINISTERED FOR AGITATION/RESTLESSNESS. SAFETY PRECAUTIONS ARE IN PLACE. WILL CONTINUE TO MONITOR.
[2018-06-30] MEDS: KCL 20 mEq in D5/0.45NS 1000mL 1,000 ML IV SCH (03:00)
[2018-06-30 03:25] VITALS: BP_SYST 116
--- NOTE | 2018-06-30 03:26 | NUR ---
CONTINUED AGITATION PT CONTINUES TO BE AGITATED AND RESTLESS. PT ATTEMPTING TO PULL OF NASAL CANNULA. NURSE AT BEDSIDE TO ENSURE PT SAFETY. SAFETY PRECAUTIONS ARE IN PLACE, WILL CONTINUE TO MONITOR.
--- NOTE | 2018-06-30 05:35 | NUR ---
AGITATION/RESTLESSNESS PT REMAINS AGITATED AND RESTLESS. ATTEMPTING TO PULL OFF NASAL CANNULA. RN AT BEDSIDE TO ENSURE SAFETY. SAFETY PRECAUTIONS OBSERVED, WILL MONITOR.
[2018-06-30] MEDS: INSULIN REGULAR, HUMAN 100 UNITS/ML, 10 ML VIAL (novoLIN R) SUBCUT PRN ×2 (06:15→17:44)
[2018-06-30 06:24] VITALS: BP_SYST 116
--- NOTE | 2018-06-30 06:54 | NUR ---
CLOSING NOTE PT IN BED AGITATED AND RESTLESS. RN REMAINS AT BEDSIDE TO ENSURE PT SAFETY. IVF INFUSING AT 23 ML/HR, LIPIDS INFUSING AT 5 ML/HR, TPN INFUSING AT 42 ML/HR. PICC LINE DRESSING DRY AND INTACT, PICC FLUSHES WELL WITH GOOD BLOOD RETURN. MEDINA CATHETER IN PLACE AND DRAINING TO GRAVITY. PT RECEIVING O2 VIA NASAL CANULA AT 2L. ALL NEEDS MET DURING SHIFT. SAFETY PRECAUTIONS ARE OBSERVED, BED IN LOWEST POSITION, CALL LIGHT WITH PT, SIDE RAILS UP X 3, CLOSE TO NURSING STATION AND WITH BED ALARM ON. WILL ENDORSE CARE TO DAY SHIFT RN.
--- NOTE | 2018-06-30 08:00 | NUR ---
PT AGITATED AND CONFUSED. IVF INFUSING AT 23 ML/HR, LIPIDS INFUSING AT 5 ML/HR, TPN INFUSING AT 42 ML/HR. PICC LINE DRESSING DRY AND INTACT. MEDINA IN PLACE. PT RECEIVING O2 VIA NASAL CANULA AT 3L. CALL LIGHT IN PLACE, BED LOCKED AT THE LOWEST POSITION, ST ON MONITOR, BED ALARM ON, PATIENT IS PLACED CLOSED TO NURSING STATION.
[2018-06-30 08:09] VITALS: BP_SYST 116
[2018-06-30] MEDS: CEFEPIME 1 GM in D5W 50 ML IV SCH ×2 (08:16→21:37)
[2018-06-30 08:24] LABS: WHITE BLOOD COUNT (AUTO) 13.1 K/uL (4.8-10.8)
[2018-06-30 08:25] LABS: HEMATOCRIT 34.1 % (36-54); HEMOGLOBIN 11.1 g/dL (14.0-18.0); MEAN CORPUSCULAR HEMOGLOBIN 31 pg (27-31); MEAN CORPUSCULAR HGB CONC 33 % (32-36); MEAN CORPUSCULAR VOLUME 94 fL (79.0-98.0); NEUTROPHILS % (AUTO) 77.4 % (40.0-70.0); PLATELET COUNT (AUTO) 282 K/uL (130-430); RED BLOOD CELL COUNT(AUTO) 3.61 MIL/uL (4.2-6.2); RED CELL DISTRIBUTION WIDTH 12.4 % (9.0-15.0)
[2018-06-30 08:26] LABS: BASOPHILS % (AUTO) 0.3 % (0.0-2.0); EOSINOPHILS # (AUTO) 0.7 K/uL (0.0-0.4); EOSINOPHILS % (AUTO) 5.3 % (0.0-4.0); LYMPHOCYTES # (AUTO) 1.4 K/uL (1.0-5.5); LYMPHOCYTES % (AUTO) 10.9 % (20.5-51.5); MONOCYTES # (AUTO) 0.8 K/uL (0.0-1.0); MONOCYTES % (AUTO) 6.1 % (1.7-9.3); NEUTROPHILS # (AUTO) 10.2 K/uL (1.8-7.7)
[2018-06-30 08:38] LABS: ANION GAP 8 (5-15); CALCIUM 8.3 mg/dL (8.4-11.0); CHLORIDE 102 mmol/L (98-107); CREATININE 0.84 mg/dL (0.55-1.30); GLUCOSE 172 mg/dL (70-99); POTASSIUM 4.8 mmol/L (3.5-5.1); SODIUM SERUM 138 mmol/L (136-145); UREA NITROGEN, BLOOD 17 mg/dL (8-21)
[2018-06-30] MEDS: prednisoLONE 1% OPHTHALMIC SUSPN 5 ML OP SCH ×4 (09:00→21:37)
[2018-06-30] MEDS: HYDROcodone/ACETAMIN 10-325 MG TAB PO SCH ×2 (09:00→21:00)
[2018-06-30] MEDS: AMIODARONE HCL 200 MG TABLET PO SCH ×2 (09:00→21:00)
[2018-06-30] MEDS: TAMSULOSIN HCL 0.4 MG CAP PO SCH (09:00)
[2018-06-30] MEDS: METOPROLOL TARTRATE 25 MG TABLET PO SCH ×2 (09:00→21:00)
[2018-06-30] MEDS: buPROPion HCL 100 MG TABLET.SA PO SCH ×2 (09:00→21:00)
--- NOTE | 2018-06-30 09:00 | NUR ---
PATIENT SPITS OUT APPLE SAUCE.
[2018-06-30 09:07] LABS: ALANINE AMINOTRANSFERASE 28 U/L (12-78); ALBUMIN 2.1 g/dL (3.4-4.8); ASPARTATE AMINOTRANSFERASE 33 U/L (10-37); PHOSPHORUS 3.8 mg/dL (2.7-4.5); TOTAL BILIRUBIN 0.8 mg/dL (0.0-1.0)
[2018-06-30] MEDS ORDERED: TPN CENTRAL 0.0001 ML, SODIUM ACETATE 40 MEQ, POTASSIUM CHLORIDE 20 MEQ, K PHOS 9 MM, M... IV SCH ×18 (10:00→18:00)
--- NOTE | 2018-06-30 10:50 | NUR ---
BROOKS DC PLANNING RE: TRANSFER CM SPOKE WITH [facility] ([phone]) TO UPDATE ON AVAILABILITY FOR TRANSFER TO CONTRACTED HOSPITAL TODAY; TELE BED IS NEEDED. BROOKS UPDATED GERARDO RE: Pt's NEED FOR HIDA SCAN; MULTIPLE GALLSTONES IN GALLBLADDER; Pt ON TPN. MENTAL STATUS OF AGITATION NECESSITATING INCREASING SEDATION AND PSYCH RE-EVAL IS PENDING. NS IS LEAVING RESTRAINTS OFF DUE TO NEED TO TRANSFER Pt WITHOUT SOFT RESTRAINT USE. RESTRAINTS IN PLACE TO PREVENT Pt FROM PULLING PICC LINE. 1115: REC'd CALL BACK FROM [facility] WHO STATED THAT ALL OF THE FOLLOWING HOSPITALS DO NOT HAVE ANY OPEN TELE BEDS; SHE WILL F/UP AGAIN AT 4 P.M. TO ASCERTAIN IF AVAILABLE BEDS AFTER DISCHARGES: [facility] IN [facility] IN [place] AND [facility] IN [facility] IN [facility] IN [place] THE FIRST 3 HOSPITALS WOULD BE FAMILY PREFERENCE DUE TO DISTANCE. [facility] NEEDS CALL BACK FOR ATTENDING MD PLAN WAS TO INQUIRE OVER THE WEEKEND IF DR. MEYERS WOULD TAKE OVER CARE OF Pt PER FAMILY REQUEST.
--- NOTE | 2018-06-30 11:30 | NUR ---
BLOOD SUGAR 135. NO COVERAGE NEEDED.
[2018-06-30 12:10] VITALS: BP_SYST 191
--- NOTE | 2018-06-30 12:17 | NUR ---
Nutrition F/U Admitting Diagnosis Pneumonia Reviewed Pertinent Medical/Surgical Hx Medical Record Patient Medical History Comment: PMH: DM, HLD, Benign Prostate Hypertrophy, chronic abd pain per MD notes. Pt also found w/: acute cardiac arrhythmia, acute colitis, acute metabolic encephalopathy, dehydration, DM, severe malnutrition, sepsis per MD notes. 06/27/18 MD Progress Notes: acute colitis, acute metabolic encephalopathy, BPH w/ urinary retention, HTN 06/30/18 MD Progress Notes: Delirium, Chronic Back Pain. Subjective Information Pt seen resting in bed, +restless at time of RD visit. TPN infusing per MD orders. RD s/w pharmacist at 0936 re: new TPN rec. Per EMR, abd is soft and non-distended w/ active bowel sounds. I/O: 870/1000 -130ml, IV total intake 306ml per 12 hrs. TPN intake 1188ml per 24 hrs. Last BM 06/28/18 x 1. Pt is on NPO + TPN support. Current TPN provides: 1025 kcal, 50 gm protein and GIR 1 gm CHO/kg/min which meets 61% of lower end of estimated calorie needs and 63% of estimated protein needs. Pt is not yet meeting optimal nutrition w/ current TPN regimen. Pt may benefit from an increased rate of TPN to better meet estimated needs. RD obtained wt w/ bedscale: 144.4 lb (06/30/18). Current Diet Order/Nutrition Support NPO x4 days + D20%AA10% at 42ml/hr, IL 20% at 10ml/hr via central line x 1 day Patient/Significant Other Unable To Verbalize Education Provided Not Indicated Pertinent Medications KCl/D5%/NaCl IV, dulcolax suppository, zofran, SSI Pertinent Labs (06/30/18) BG 172 H, POC BG 101 H, ALB 2.2 L, H/H 11.1 L/34.1 L, ALP 54 WNL (improved), K 4.8 WNL (improved), WBC 13.1 H (06/21/18) HgA1c 6.2 H Height (Feet) 5 feet Height (Inches) 6.00 inches Weight (Pounds) 129 pounds. NEW WT: 148 lb/67 kg (06/24/18 -- likely taken by nursing staff). BEDSCALE WT: 145 lb (06/27/18); 144.4 lb (06/30/18) Weight (Calculated Kilograms) 67.132 kilograms Patient Weight 67.132 kg UBW 130 lb per daughter report -- 06/27/18 Body Mass Index 23.9 kg/m2 %IBW 104 Shirley/Adjusted Body Weight 142 lb, 65 kg Recent Weight Change No - per EMR Weight Status Appropriate Gastrointestinal Symptoms None Food Allergies No - per daughter Usual Diet At Home regular diet per daughter Skin Integrity Comment: Driss scale: 15; per nursing notes, lateral L head w/ vibha d/t fall; L/R arm w/ ecchymosis. R foot and L foot w/ non-pitting edema. Current % PO N/A on NPO + TPN Estimated Energy Expenditure (kcals/day) 1014-8047 kcal/day (25-30 kcal/kg CBW for maintenance) Estimated Protein Required (g/day) 80 gm/day (1.2 gm/kg CBW for maintenance) Estimated Fluid Required (l/day) 1.7-2 L/day (1ml/calorie for dehydration) Problem/Etiology/Signs/Symptoms Inadequate nutritional intake related to mental status as evidenced by confused state and 33% poor PO intake. *ongoing Increased nutritional needs related to metabolic demands as evidenced by estimated calorie and protein needs for sepsis. *ongoing Expected Outcomes/Goals Monitor TPN support and intake w/ goal of pt meeting at least 75% of estimated nutritional needs, labs trending WNL, normal GI function, skin integrity/wt maintenance. Dietitian Recommendations * Recommend continuing NPO per MD orders. * Recommend TPN D20%, AA10% at 75 ml/hr (goal rate), IL20% at 10 ml/hr daily via central line Provides: 1452 kcal/day, 90 gm protein/day, and GIR: 1.9 gm CHO/kg/min Meets: 86% of lower end of estimated caloric needs and 113% of estimated protein needs Follow Up High Risk: F/U in 2-3 days
--- NOTE | 2018-06-30 12:32 | NUR ---
Dietitian Recommendations * Recommend continuing NPO per MD orders. * Recommend TPN D20%, AA10% at 75 ml/hr (goal rate), IL20% at 10 ml/hr daily via central line Provides: 1452 kcal/day, 90 gm protein/day, and GIR: 1.9 gm CHO/kg/min Meets: 86% of lower end of estimated caloric needs and 113% of estimated protein needs. Please see Nutrition F/U note for details. FREDI CLOUD Addendum: 06/30/18 at [address] FREDI bartholomew/kendell pharmacist 06/30/18 0936 re: new TPN rec.
[2018-06-30] MEDS: FLUCONAZOLE 200 mg/ NS 100 ML IV SCH (13:00)
--- NOTE | 2018-06-30 13:30 | NUR ---
PATIENT'S HIDA SCAN WILL BE AT 1700.
[2018-06-30] MEDS: LevALBUTEROL HCL 1.25 MG/0.5 ML *CONC.* VIAL.NEB (XOPENEX CONC.) INH PRN (14:55)
--- NOTE | 2018-06-30 15:26 | NUR ---
Dr. Alicia vargas at bedside to see patient. Patient's daughter at bedside. Dr Vargas talk to patient daughter about plan of care. I spoke to patient daughter after Dr vargas and she stated that Dr Vargas will remmain looking after the patient
[2018-06-30] MEDS ORDERED: LORazepam 2 MG/ML VIAL IVP ONE (16:00)
[2018-06-30 16:48] VITALS: BP_SYST 157
[2018-06-30] MEDS: ACETAMINOPHEN 325 MG TABLET PO PRN (16:55)
--- NOTE | 2018-06-30 17:28 | NUR ---
D/C Planning: Spoke with David Lazo cell # [phone] advised she is looking for information regarding transfer. CM Director advised Transfer is penidng from contracted bed availability. She also requested to speak with Dr Griffith and requested when psych md will see pt. Per Dr Griffith pt will be seen tomorrow provided cell number for david Lazo to physician. No bed availability at contracted hospitals. Await HIDA scan results. Dr Vargas will continue to be attending here at [facility] and GI will eval for possible PEG per Dr Vargas. CM to follow up tomorrow.
--- NOTE | 2018-06-30 17:30 | NUR ---
CHAD FROM [facility] INFORMS RN THAT [facility] FOR HIDA SCAN IS NOT AVAILABLE AT THIS TIME. WILL TRY TOMORROW.
--- NOTE | 2018-06-30 18:00 | NUR ---
BLOOD SUGAR 197. 2 UNITS OF RI IS GIVEN PER SLIDING SCALE.
[2018-06-30] MEDS: FAT EMULSIONS 250 ML IV SCH (18:41)
--- NOTE | 2018-06-30 19:10 | NUR ---
REPORT GIVEN TO DOMINIC MAC. ALL NEEDS MET AT THIS TIME.
[2018-06-30 20:00] VITALS: BP_SYST 146
--- NOTE | 2018-06-30 20:00 | NUR ---
Initial PM Note Pt was received lying in bed lethargic, but arousable. Pt wakes up and attempts to remove medical tubes. Skin is warm and dry to touch. No signs or symptoms of hyperglycemia or hypoglycemia noted. TPN is infusing well via GLADYS PICC at 55ml/hr, Lipids at 10ml/hr and IVF of D51/2NS W/ 20Meq KCL at 40ml/hr. PICC dressing is dry and intact. Bingham Cath to gravity drainage is patent with clear yellowish urine. Fall and safety precautions are in place. Will continue to monitor pt.
[2018-06-30] MEDS: QUEtiapine FUMARATE 25 MG TABLET PO SCH (21:00)
--- NOTE | 2018-06-30 21:37 | NUR ---
Blood Sugar Accucheck 125 and no Insulin coverage needed. Skin remains warm and dry to touch. TPN/Lipids/IVF are infusing well.
--- NOTE | 2018-06-30 22:27 | NUR ---
Pain Medication Pt was moaning out loud and saying, "Help me. Also noted facial grimacing. "Dilaudid 1mg was given IV for generalized body aches with some relief.
--- NOTE | 2018-07-01 | NUR ---
Repositioning Pt has been repositioned in bed multiple times due to pt moving around in bed and taking off his hospital gown, oxygen's nasal canula and double end production grinder's electrodes. TPN/Lipids and IVF are infusing well. Fall and safety precautions are in place.
[2018-07-01] MEDS: LevALBUTEROL HCL 1.25 MG/0.5 ML *CONC.* VIAL.NEB (XOPENEX CONC.) INH SCH ×4 (01:06→20:21)
[2018-07-01] MEDS: LORazepam 2 MG/ML VIAL IVP PRN ×2 (01:38→08:07)
--- NOTE | 2018-07-01 01:38 | NUR ---
Anxiety/Agitation Pt is very restless and agitated. Pt kept attempting to get out of bed. Pt has taken off his hospital gown, oxygen sensor, nasal canula and cardiac rehabilitation specialist's electrodes multiple times. Pt is getting agitated with every attempt to put equipment and hospital gown back on pt. Ativan 0.5mg was given IV. Will continue to monitor pt.
--- NOTE | 2018-07-01 02:30 | NUR ---
Pain Medication Dilaudid 1mg was given IV for generalized body aches with relief. Fall and safety precautions are in place. TPN/Lipids and IVF are infusing well via GLADYS PICC.
[2018-07-01 02:46] VITALS: BP_SYST 142
[2018-07-01] MEDS: HYDROmorphone 1 MG INJ. 1 MG/ML AMPUL IVP PRN ×2 (03:00→10:54)
--- NOTE | 2018-07-01 03:30 | NUR ---
Rounds Pt was repositioned in bed due to confusion and removing equipment from his body. TPN, Lipids and IVF are infusing well. Fall and safety precautions are in place.
--- NOTE | 2018-07-01 05:00 | NUR ---
Rounds Pt remains confused and disoriented. Pt has been repositioned several times because he keeps taking off his gown and equipment on him. Fall and safety precautions are in place.
[2018-07-01] MEDS: KCL 20 mEq in D5/0.45NS 1000mL 1,000 ML IV SCH (05:56)
[2018-07-01] MEDS: INSULIN REGULAR, HUMAN 100 UNITS/ML, 10 ML VIAL (novoLIN R) SUBCUT PRN ×3 (06:17→20:27)
--- NOTE | 2018-07-01 06:52 | NUR ---
Closing Note Pt remains very confused and disoriented. Pt will not keep oxygen canula on, despite medicating pt with IV Dilaudid x2 and IV Ativan x1 this shift. Accucheck 193 this AM and 2 units Regular Insulin was given SQ. Skin remains warm and dry to touch. All pt's needs were attended to. No fall or injury noted this shift. IVF is infusing well in RAC. TPN/Lipids and IVF are infusing well via GLADYS PICC. Will endorse to day shift nurse.
--- NOTE | 2018-07-01 07:00 | NUR ---
Consent for PEG Tube Placement Spoke with Marguerite Lazo, pt's daughter who stated Dr. Vargas discussed the GT Tube placement with her and Dr. Vargas was going to recommend a GI doctor. Marguerite was informed Dr. Vargas recommended Dr. Rhoades and consent needs to be signed. Marguerite stated she will be in at 0900 to sign the consent. Will endorse to day shift nurse.
[2018-07-01 07:22] LABS: INR 1.1 (0.80-1.20)
--- NOTE | 2018-07-01 07:30 | NUR ---
PT AGITATED AND CONFUSED.TPN AND IV FLUIDS RUNNING THRY PICC LINE DRESSING DRY AND INTACT. MEDINA IN PLACE. PT RECEIVING O2 VIA NASAL CANULA AT 3L. CALL LIGHT IN PLACE, BED LOCKED AT THE LOWEST POSITION, ST ON MONITOR, BED ALARM ON, PATIENT IS PLACED CLOSED TO NURSING STATION.
[2018-07-01 08:00] VITALS: BP_SYST 158
[2018-07-01 08:18] LABS: ANION GAP 5 (5-15); CHLORIDE 99 mmol/L (98-107); POTASSIUM 4.4 mmol/L (3.5-5.1); SODIUM SERUM 133 mmol/L (136-145)
[2018-07-01 08:19] LABS: CALCIUM 8.3 mg/dL (8.4-11.0); CREATININE 0.89 mg/dL (0.55-1.30); GLUCOSE 227 mg/dL (70-99); PHOSPHORUS 3.1 mg/dL (2.7-4.5); UREA NITROGEN, BLOOD 18 mg/dL (8-21)
--- NOTE | 2018-07-01 08:30 | NUR ---
Dr. Rhoades, GI consult, is at bedside. Patient appears agitated, and orders restraints for HIDA scan; restraints will be discontinued after HIDA scan.
--- NOTE | 2018-07-01 08:35 | NUR ---
PATIENT TO HIDA SCAN.
[2018-07-01] MEDS: TAMSULOSIN HCL 0.4 MG CAP PO SCH (09:00)
[2018-07-01] MEDS: prednisoLONE 1% OPHTHALMIC SUSPN 5 ML OP SCH ×4 (09:00→20:24)
[2018-07-01] MEDS: METOPROLOL TARTRATE 25 MG TABLET PO SCH ×2 (09:00→20:29)
[2018-07-01] MEDS: AMIODARONE HCL 200 MG TABLET PO SCH ×2 (09:00→20:28)
[2018-07-01] MEDS: HYDROcodone/ACETAMIN 10-325 MG TAB PO SCH ×2 (09:00→20:29)
[2018-07-01] MEDS: buPROPion HCL 100 MG TABLET.SA PO SCH ×2 (09:00→20:29)
--- NOTE | 2018-07-01 10:00 | NUR ---
DC PLANNING Called & left msg for Batsheva @ [facility] [phone], to f/u on transfer to [place] [facility] status. Addendum: 07/01/18 at 1128 by Cheyenne Ramirez RN Received call back from Batsheva, will call if bed found @ [facility].
--- NOTE | 2018-07-01 11:00 | NUR ---
Patient has returned from HIDA scan. Restraints d/c per Dr. Rhoades's instruction.
[2018-07-01] MEDS: CEFEPIME 1 GM in D5W 50 ML IV SCH ×2 (11:06→20:25)
--- NOTE | 2018-07-01 11:30 | NUR ---
BLOOD SUGAR 122. NO COVERAGE IS GIVEN.
[2018-07-01 11:32] VITALS: BP_SYST 142
[2018-07-01] MEDS: FLUCONAZOLE 200 mg/ NS 100 ML IV SCH (12:26)
--- NOTE | 2018-07-01 13:28 | NUR ---
PATIENT IS RESTING AT THIS TIME. NO SIGNS OF DISTRESS NOTED.
--- NOTE | 2018-07-01 13:46 | NUR ---
NORMA PLANNING Received call back from Batsheva @ [facility], no beds avail in any of the contracted hospitals, will check again in evening after 1600. Addendum: 07/01/18 at 1610 by Cheyenne Ramirez RN Received call from states Batsheva second round of calls to all contracted hospitals & still no beds, will be tried again @ night.
--- NOTE | 2018-07-01 13:57 | NUR ---
DR. TORRES AT BEDSIDE. ORDERS WERE GIVEN.
[2018-07-01] MEDS ORDERED: HYDROmorphone 2 MG/ML VIAL IVP ONE (14:00)
[2018-07-01] MEDS ORDERED: HYDROmorphone 2 MG/ML VIAL ONE (14:09)
--- NOTE | 2018-07-01 14:17 | NUR ---
CONSULT SURGERY CHOLELITHIASIS DR ARGUETA [phone] S/W [facility] [facility]
--- NOTE | 2018-07-01 14:39 | NUR ---
DR. ARGUETA CALLS BACK. PATIENT'S INFO IS RELAYED.
[2018-07-01 15:56] VITALS: BP_SYST 106
--- NOTE | 2018-07-01 17:00 | NUR ---
patient's blood sugar 173. 2 units of RI will be given.
[2018-07-01] MEDS: FAT EMULSIONS 250 ML IV SCH (17:34)
[2018-07-01] MEDS ORDERED: TPN CENTRAL IV SCH ×11 (18:00)
[2018-07-01] MEDS ORDERED: POTASSIUM CHLORIDE IV SCH ×11 (18:00)
[2018-07-01] MEDS ORDERED: K PHOS IV SCH ×11 (18:00)
[2018-07-01] MEDS ORDERED: [UNRECOGNIZED DRUG - OTHER] IV SCH ×11 (18:00)
[2018-07-01] MEDS ORDERED: SODIUM ACETATE IV SCH ×11 (18:00)
--- NOTE | 2018-07-01 18:30 | NUR ---
patient is seen by Dr. Calvillo. POC is discussed with family.
[2018-07-01 20:00] VITALS: BP_SYST 144
--- NOTE | 2018-07-01 20:00 | NUR ---
Initial PM Note Pt was received lying in bed very confused, disoriented and anxious. Pt is moaning in pain. Pt's daughter is visiting at the bedside. Skin is warm and dry to touch. No signs or symptoms of hyperglycemia or hypoglycemia noted. TPN is infusing well via GLADYS PICC at 69.4ml/hr, Lipids at 10ml/hr and IVF of D51/2NS W/ 20Meq KCL at 40ml/hr. PICC dressing is dry and intact. Bingham Cath to gravity drainage is patent with clear yellowish urine. Fall and safety precautions are in place. Will medicate pt for pain and continue to monitor.
[2018-07-01] MEDS: HYDROmorphone 2 MG/ML VIAL IVP PRN ×2 (20:05→23:21)
--- NOTE | 2018-07-01 20:05 | NUR ---
Pain Medication Dilaudid 2mg was given IV for generalized body aches with relief. Fall and safety precautions are in place. TPN/Lipids and IVF are infusing well via GLADYS PICC.
--- NOTE | 2018-07-01 20:23 | NUR ---
Blood Sugar Accucheck 183 and 2 units Regular Insulin was given SQ. Skin remains warm and dry to touch. TPN/Lipids/IVF are infusing well via GLADYS PICC. Fall and safety precautions are in place.
[2018-07-01] MEDS: QUEtiapine FUMARATE 25 MG TABLET PO SCH (20:29)
--- NOTE | 2018-07-01 22:00 | NUR ---
Rounds Pt is sleeping in bed without any respiratory distress noted. TPN/Lipids/IVF are infusing well via GLADYS PICC. Fall and safety precautions are in place.
[2018-07-01 23:25] VITALS: BP_SYST 113
--- NOTE | 2018-07-02 01:00 | NUR ---
Rounds Pt is sleeping without any distress noted. Fall and safety precautions are in place. TPN/Lipids and IVF are infusing well via GLADYS PICC. Call light is with pt and bed alarm is on.
[2018-07-02] MEDS: LevALBUTEROL HCL 1.25 MG/0.5 ML *CONC.* VIAL.NEB (XOPENEX CONC.) INH SCH ×4 (01:12→18:56)
[2018-07-02] MEDS: HYDROmorphone 2 MG/ML VIAL IVP PRN ×5 (02:22→21:15)
--- NOTE | 2018-07-02 03:00 | NUR ---
Rounds Pt is sleeping comfortably in bed. TPN/Lipids and IVF are infusing well via GLADYS PICC. Fall and safety precautions are in place. Call light is with pt and bed alarm is on.
--- NOTE | 2018-07-02 05:00 | NUR ---
Rounds Pt is sleeping without any distress noted. Fall and safety precautions are in place. Call light is with pt and bed alarm is on. TPN/Lipids and IVF are infusing well via GLADYS PICC.
[2018-07-02] MEDS: KCL 20 mEq in D5/0.45NS 1000mL 1,000 ML IV SCH (05:46)
[2018-07-02] MEDS: INSULIN REGULAR, HUMAN 100 UNITS/ML, 10 ML VIAL (novoLIN R) SUBCUT PRN ×3 (06:03→22:34)
--- NOTE | 2018-07-02 06:24 | NUR ---
Closing Note Pt is resting comfortably in bed at this time. Pt was suctioned orally x3 this shift and small amount of whitish secretions suctioned. Accucheck 179 this AM and 2 units Regular Insulin was given SQ. Skin remains warm and dry to touch. All pt's needs were attended to. No fall or injury noted this shift. TPN/Lipids and IVF are infusing well via GLADYS PICC. Will endorse to day shift nurse.
[2018-07-02 07:12] LABS: ANION GAP 4 (5-15); CALCIUM 7.7 mg/dL (8.4-11.0); CHLORIDE 102 mmol/L (98-107); CREATININE 0.85 mg/dL (0.55-1.30); GLUCOSE 205 mg/dL (70-99); POTASSIUM 4.9 mmol/L (3.5-5.1); SODIUM SERUM 136 mmol/L (136-145); TOTAL BILIRUBIN 0.5 mg/dL (0.0-1.0); UREA NITROGEN, BLOOD 19 mg/dL (8-21)
[2018-07-02 07:13] LABS: ALANINE AMINOTRANSFERASE 28 U/L (12-78); ALBUMIN 1.9 g/dL (3.4-4.8); ASPARTATE AMINOTRANSFERASE 22 U/L (10-37); LIPASE 78 U/L (73-393); PHOSPHORUS 4.1 mg/dL (2.7-4.5)
[2018-07-02 07:14] LABS: TRIGLYCERIDES 49 mg/dL (30-150)
[2018-07-02 07:26] LABS: HEMATOCRIT 32.2 % (36-54); HEMOGLOBIN 10.8 g/dL (14.0-18.0); MEAN CORPUSCULAR HEMOGLOBIN 32 pg (27-31); MEAN CORPUSCULAR HGB CONC 34 % (32-36); MEAN CORPUSCULAR VOLUME 96 fL (79.0-98.0); RED BLOOD CELL COUNT(AUTO) 3.37 MIL/uL (4.2-6.2); RED CELL DISTRIBUTION WIDTH 12.4 % (9.0-15.0); WHITE BLOOD COUNT (AUTO) 12.9 K/uL (4.8-10.8)
[2018-07-02 07:27] LABS: BASOPHILS # (AUTO) 0.1 K/uL (0.0-0.2); BASOPHILS % (AUTO) 0.5 % (0.0-2.0); EOSINOPHILS # (AUTO) 0.8 K/uL (0.0-0.4); EOSINOPHILS % (AUTO) 6.5 % (0.0-4.0); LYMPHOCYTES # (AUTO) 1.1 K/uL (1.0-5.5); LYMPHOCYTES % (AUTO) 8.4 % (20.5-51.5); MONOCYTES # (AUTO) 0.9 K/uL (0.0-1.0); MONOCYTES % (AUTO) 7.3 % (1.7-9.3); NEUTROPHILS % (AUTO) 77.3 % (40.0-70.0); PLATELET COUNT (AUTO) 312 K/uL (130-430)
[2018-07-02] MEDS ORDERED: MEPERIDINE HCL/PF 100 MG/ML AMP ONE (07:32)
[2018-07-02] MEDS ORDERED: MIDAZOLAM HCL 5 MG/5 ML VIAL ONE (07:32)
--- NOTE | 2018-07-02 07:40 | NUR ---
PATIENT IS OFF THE FLOOR FOR G TUBE PLACEMENT AT THIS TIME.
[2018-07-02] MEDS ORDERED: fentaNYL CITRATE/PF 100 MCG/2 ML AMP IVP PRN ×2 (08:30)
[2018-07-02] MEDS ORDERED: ONDANSETRON HCL 4 MG/2 ML VIAL IVP PRN (08:30)
[2018-07-02 09:00] VITALS: BP_SYST 144
--- NOTE | 2018-07-02 09:02 | NUR ---
Notes patient is back from G tube placement, resting in bed, vital signs are stable, no acute distress or pain is noted, receiving oxygen via mask at 2 liters, will continue to monitor, safety precautions in place, call light within reach.
[2018-07-02] MEDS: CEFEPIME 1 GM in D5W 50 ML IV SCH (09:12)
[2018-07-02] MEDS: AMIODARONE HCL 200 MG TABLET PO SCH ×2 (09:16→22:32)
[2018-07-02] MEDS: TAMSULOSIN HCL 0.4 MG CAP PO SCH (09:22)
[2018-07-02] MEDS: METOPROLOL TARTRATE 25 MG TABLET PO SCH ×2 (09:22→22:32)
[2018-07-02] MEDS: HYDROcodone/ACETAMIN 10-325 MG TAB PO SCH (09:22)
[2018-07-02] MEDS: prednisoLONE 1% OPHTHALMIC SUSPN 5 ML OP SCH ×4 (09:23→22:30)
[2018-07-02] MEDS: buPROPion HCL 100 MG TABLET.SA PO SCH ×2 (09:26→22:31)
--- NOTE | 2018-07-02 09:30 | NUR ---
NOTES SUCTIONED PATIENT THROUGH MOUTH WITH SMALL AMOUNT OF THICK WHITE SECRETIONS, ALSO CLEANED MOUTH WITH SWABS AND PROVIDED ORAL CARE, PATIENT TOLERATED WELL, WILL CONTINUE TO MONITOR.
[2018-07-02 10:30] LABS: INR 1.1 (0.80-1.20)
--- NOTE | 2018-07-02 11:03 | NUR ---
Case mgt: I called [facility] at [phone] to get update on out of network transfer--Per Jabier, patient case manager Batsheva is in a meeting and he will have her call me back. Per bedside nurse Pauline, pt had new G-tube placed today and has been out of restraints since yesterday, and pt has abd binder on to protect G-tube side from pt pulling at it. Pauline says pt desaturates when he has procedure or gets agitated. Pt currently on at 2-4L/NC with sat 95%--DIYA RN
--- NOTE | 2018-07-02 11:10 | NUR ---
NOTES / BLOOD SUGAR BLOOD SUGAR IS 128 AT THIS TIME, NO INSULIN COVERAGE NEEDED PER SLIDING SCALE, PATIENT RESTING IN BED WITH NO SIGNS OF DISTRESS, BREATHING IS EVEN AND UNLABORED, OXYGEN IS 98% ON 2L FACE MASK, NO SIGNS OF PAIN AT THIS TIME, IVF INFUSING WELL, WILL CONTINUE TO MONITOR, SAFETY PRECAUTIONS IN PLACE, THREE SIDE RAILS UP, CALL LIGHT WITHIN REACH.
[2018-07-02] MEDS: FLUCONAZOLE 200 mg/ NS 100 ML IV SCH (11:21)
[2018-07-02 11:33] VITALS: BP_SYST 145
--- NOTE | 2018-07-02 13:05 | NUR ---
Notes patient is resting in bed with eyes closed, breathing is even and unlabored, IVF infusing well with, no signs of acute distress or pain is noted at this time, will continue to monitor, oxygen saturation is 98% on 2L face mask, safety precautions in place, call light within reach.
--- NOTE | 2018-07-02 13:22 | NUR ---
RT NOTES: 1322 GIVEN PT HHN TX, WHICH PT UMA. WELL WITH NO ADVERSE EFFECT. NO RESP. DISTRESS NOTED. PT UNABLE TO FOLLOW INCENTIVE SPIROMETRY INSTRUCTIONS THEREFORE I.S. NOT DONE. WILL CONTINUE MONITORING PT CLOSELY. Addendum: 07/02/18 at 1443 by Elaina Vega RT Amended: Links added.
--- NOTE | 2018-07-02 14:00 | NUR ---
D/C telemetry patient transferred to med surg unit at this time.
--- NOTE | 2018-07-02 14:06 | NUR ---
Case mgt: S/W Dr. Vargas as he examined pt today--he downgraded pt to med/surg and indicates territory sales consultant indicates high risk for anesthesia for gallbladder surgery, so he will s/w surgeon. Pt receiving 02 at 2L via mask and per nurse Carpenter, pt's granddaughter was at bedside for 10 minutes today and pt is not trying to climb OOB or pull at tubings. Updated Batsheva [facility] [phone]--DIYA RN
[2018-07-02 15:41] VITALS: BP_SYST 133
--- NOTE | 2018-07-02 16:30 | NUR ---
NOTES PATIENT IS RESTING IN BED, BREATHING IS EVEN AND UNLABORED, IVF INFUSING WELL, PATIENT SUCTIONED WITH SMALL AMOUNT OF THICK WHITE SECRETIONS, NO ACUTE DISTRESS NOTED, PAIN IS CONTROLLED AT THIS TIME, WILL CONTINUE TO MONITOR, FAMILY IS AT BEDSIDE, SAFETY PRECAUTIONS IN PLACE, CALL LIGHT WITHIN REACH.
--- NOTE | 2018-07-02 16:35 | NUR ---
Case mgt: Per Batsheva at [facility], she might have a bed for pt at [facility] and will call our nurse on unit. Xray CD requested from radiology and transfer packet updated. DIYA ALFARO Addendum: 07/02/18 at 1644 by Bhavana Pimentel RN Case mgt: Per Batsheva, [facility] is preferred ambulance if she gets a bed a [facility]. DIYA ALFARO
[2018-07-02] MEDS: FAT EMULSIONS 250 ML IV SCH (17:20)
--- NOTE | 2018-07-02 17:52 | NUR ---
[facility] [place] [facility] ACCEPT[facility] PATIENT TO BE TRANSFERRED UNDER ACCEPTING PHYSICIAN DR. YUMIKO POTTER. Addendum: 07/02/18 at 1826 by Pauline Perkins RN WAITING FOR CALL REGARDING BED PLACEMENT.
[2018-07-02] MEDS ORDERED: TPN CENTRAL 0.0001 ML, SODIUM ACETATE 40 MEQ, POTASSIUM CHLORIDE 20 MEQ, K PHOS 12 MM, ... IV SCH ×12 (18:00)
--- NOTE | 2018-07-02 18:44 | NUR ---
CLOSING NOTE PATIENT RESTING IN BED WITH EYES OPEN, IVF INFUSING WELL, CONGESTION AND CRACKLES HEARD, NOTIFIED RESPIRATORY THERAPY, PATIENT ON 2L OXYGEN VIA FACE MASK, NO SIGNS OF ACUTE DISTRESS OR PAIN IS NOTED AT THIS TIME, BREATHING IS EVEN AND UNLABORED, WAITING ON BED PLACEMENT AT [facility], ALL NEEDS WERE MET THROUGHOUT SHIFT, WILL ENDORSE REPORT TO ONCOMING NURSE, SAFETY PRECAUTIONS IN PLACE, CALL LIGHT WITHIN REACH.
[2018-07-02 20:00] VITALS: BP_SYST 133
--- NOTE | 2018-07-02 20:00 | NUR ---
Initial PM Note Pt was received lying in bed lethargic, but arousable. Pt is very confused, disoriented and anxious when aroused. Pt's daughter is visiting at the bedside. Skin is warm and dry to touch. No signs or symptoms of hyperglycemia or hypoglycemia noted. G tube is clamped with abdominal binder in place. Pt was suctioned orally and large amount of thick whitish secretions suctioned. TPN is infusing well via GLADYS PICC at 69.4ml/hr, Lipids at 10ml/hr and IVF of D51/2NS W/ 20Meq KCL at 40ml/hr. PICC dressing is dry and intact. Bingham Cath to gravity drainage is patent with clear yellowish urine. Fall and safety precautions are in place. Will continue to monitor pt.
[2018-07-02] MEDS: QUEtiapine FUMARATE 25 MG TABLET PO SCH (22:31)
--- NOTE | 2018-07-02 22:34 | NUR ---
Blood Sugar Accucheck 159 and 2 units Regular Insulin was given SQ. Skin remains warm and dry to touch. TPN/Lipids/IVF are infusing well via GLADYS PICC. Fall and safety precautions are in place.
[2018-07-02 23:34] VITALS: BP_SYST 105
--- NOTE | 2018-07-02 23:42 | NUR ---
CM CALLED : [facility] Barrow CALLED AND INFORMED THAT BED IS AVAILABLE 6131, AND THE PHONE NO TO GIVE REPORT IS [phone] , AND [facility] IS THE [facility]UL[facility] TO BE CALLED . ALSO RECEIVED ADDRESS TO THE [facility] -[address] [place] [address] ,[id number]. PRIMARY RN NOTIFIED ABOUT THE BED ASSIGNMENT .
--- NOTE | 2018-07-03 | NUR ---
Family Notification Pt's daughter Marguerite Lazo was informed of pt's transfer to [facility] in [place] Room 1653 tonight.
--- NOTE | 2018-07-03 00:06 | NUR ---
CLINICAL MEDICAL TRANSCRIPTIONIST I CALLED [facility] CLINICAL MEDICAL TRANSCRIPTIONIST @ 3708 TO NOTIFIED HER THAT EMR WAS UNABLE TO ARRANGE TRANSFER BUTCH TOLD ME I CAN CALL ANY OTHER AMBULANCE
--- NOTE | 2018-07-03 00:15 | NUR ---
[facility] I CALLED [facility] @ 4299 I SPOKE WITH ADONIS EMT LEGAL SUPPORT ASSISTANT TIME WILL BE @ 0120
--- NOTE | 2018-07-03 00:20 | NUR ---
CALLED SIDNEY I CALLED [facility] @ 0001 I SPOKE WITH YOSELIN HILL TO ARRANGE A TRANSFER TO [facility] AFTER SHE ASKED FOR THE PATIENT INSURANCE SHE PUT ME ON HOLD AND TOLD ME THAT SHE COULD NOT HELP US THEY DID NOT HAVE ANY DISPATCHER AROUND THIS AREA AT THIS MOMENT. Addendum: 07/03/18 at 0028 by Gloria Ott GA/ I CALLED [facility] @ OOO1
--- NOTE | 2018-07-03 00:20 | NUR ---
Report Report was called to Keturah at [facility], .
--- NOTE | 2018-07-03 00:20 | NUR ---
CURB HOP I CALLED [facility] CURB HOP @ 0020 TO LET HER KNOW: [facility] WILL QUALITY ASSURANCE MONITOR CHASSIS MR. VERGARA @ 0120 SHE WANTS THE INFORMATION TO BE GIVING BACK TO HER
[2018-07-03 00:37] VITALS: BP_SYST 105
[2018-07-03] MEDS: LevALBUTEROL HCL 1.25 MG/0.5 ML *CONC.* VIAL.NEB (XOPENEX CONC.) INH SCH (00:45)
[2018-07-03 01:26] VITALS: BP_SYST 133
--- NOTE | 2018-07-03 01:47 | NUR ---
[facility] I CALLED @ 5131 [facility] TO FIND OUT THE ETA I SPOKE WITH MIGUEL EMT HE TOLD ME AND OUR CHARGE NURSE THE CREW HE SENT EARLIER WENT HOME SO THE NEW CREW IS COMING [phone]
--- NOTE | 2018-07-03 01:56 | NUR ---
Per Charge Nurse, [facility] will be late for another 1 1/2 hours. Nurse Keturah at [facility] was notified. Addendum: 07/03/18 at 0201 by Gifty Garcia RN Correction: Ambulance company is [facility].
--- NOTE | 2018-07-03 01:59 | NUR ---
Correction: Ambulance company is [facility].
--- NOTE | 2018-07-03 03:15 | NUR ---
Rounds Pt was suctioned orally and moderate amount of thick whitish secretions noted. TPN, Lipids and IVF are infusing well via GLADYS PICC.
[2018-07-03] MEDS: HYDROmorphone 2 MG/ML VIAL IVP PRN (04:07)
--- NOTE | 2018-07-03 04:07 | NUR ---
Pain Medication Ambulance personnel here to pick pt up for transfer to [facility]. Pt moaning in severe pain. Dilaudid 2mg was given IV.
--- NOTE | 2018-07-03 04:17 | NUR ---
Transfer Note Pt was transferred to [facility] via [facility] in stable condition. Prior to transfer, TPN, Lipids and IVF were discontinued. Each PICC line lumen was flushed with 10ml Normal Saline and then capped, utilizing sterile technique. Wrist ID band was removed and placed in the shredder. Plain ID band with pt's name and was placed on pt's wrist.
--- NOTE | 2018-07-03 04:30 | NUR ---
Pain Medication Notification Nurse Keturah at [facility] was informed pt was given 2mg IV Dilaudid at 0407 for pain, prior to transfer out from [facility].
[2018-07-04 10:07] LABS: HEPATITIS B CORE AB, TOTAL Negative (Negative); HEPATITIS B SURFACE AG Negative (Negative); HEPATITIS C VIRUS AB <0.1 s/co ratio (0.0-0.9)
== END 2018-07-03 04:17 | disposition short-term general hospital (02) | DRG 871 ==
LOC: SED 22:54 → SIC 06-21 00:52 → STU 06-24 13:18 → SMU 07-02 14:26
PROVIDERS: ADMIT Family Medicine; ATTEND Family Medicine
PROC: 02HV33Z Insertion of Infusion Device into Superior Vena Cava, Percutaneous Approach (ICD-10-PCS; 2018-06-21)
PROC: B548ZZA Ultrasonography of Superior Vena Cava, Guidance (ICD-10-PCS; 2018-06-21)
PROC: 3E0336Z Introduction of Nutritional Substance into Peripheral Vein, Percutaneous Approach (ICD-10-PCS; principal; 2018-06-25)
PROC: 0DH63UZ Insertion of Feeding Device into Stomach, Percutaneous Approach (ICD-10-PCS; 2018-07-02)
DX: A41.9 Sepsis, unspecified organism (principal); G92 Toxic encephalopathy; E43 Unspecified severe protein-calorie malnutrition; K65.1 Peritoneal abscess; J69.0 Pneumonitis due to inhalation of food and vomit; I21.A1 Myocardial infarction type 2; K55.9 Vascular disorder of intestine, unspecified; J98.11 Atelectasis; I47.2 Ventricular tachycardia; K80.01 Calculus of gallbladder with acute cholecystitis with obstruction; I44.7 Left bundle-branch block, unspecified; I49.9 Cardiac arrhythmia, unspecified; E86.0 Dehydration; E11.9 Type 2 diabetes mellitus without complications; E78.5 Hyperlipidemia, unspecified; F02.80 Dementia in other diseases classified elsewhere, unspecified severity, without behavioral disturbance, psychotic disturbance, mood disturbance, and anxiety; F41.9 Anxiety disorder, unspecified; G30.9 Alzheimer's disease, unspecified; G89.29 Other chronic pain; R13.10 Dysphagia, unspecified; K29.60 Other gastritis without bleeding; F94.0 Selective mutism; F32.9 Major depressive disorder, single episode, unspecified; K21.9 Gastro-esophageal reflux disease without esophagitis; K52.9 Noninfective gastroenteritis and colitis, unspecified; I11.0 Hypertensive heart disease with heart failure; I50.9 Heart failure, unspecified; N40.1 Benign prostatic hyperplasia with lower urinary tract symptoms; R33.8 Other retention of urine; K59.00 Constipation, unspecified; F29 Unspecified psychosis not due to a substance or known physiological condition; Z51.5 Encounter for palliative care; K57.90 Diverticulosis of intestine, part unspecified, without perforation or abscess without bleeding; R62.7 Adult failure to thrive; Z95.2 Presence of prosthetic heart valve; Z68.23 Body mass index [BMI] 23.0-23.9, adult; Z88.0 Allergy status to penicillin; Z88.5 Allergy status to narcotic agent; Z88.8 Allergy status to other drugs, medicaments and biological substances; Z79.899 Other long term (current) drug therapy; Z85.46 Personal history of malignant neoplasm of prostate; Z95.0 Presence of cardiac pacemaker; Z78.1 Physical restraint status
CPT/HCPCS: 36415; 43246; 70450-TC; 71045; 74018; 78226; 80048; 80053; 80061; 81003; 82150-TC; 82962; 83036; 83605; 83690-TC; 83735-TC; 83880; 84100-TC; 84443-TC; 84478-TC; 84484; 85007; 85025; 85027; 85610-TC; 85730-TC; 86704; 86706; 86803; 87040-TC; 87045-TC; 87046; 87081; 87086; 87230-TC; 87340; 87536; 89055; 92610-GN; 93005; 93306; 94640; 94760; 95816; 96365; 96375; 99291; A9537; C1751; J0282; J0360; J0610; J0692; J1170; J1200; J1450; J1630; J1650; J1815; J1885; J1940; J1956; J2060; J2175; J2185; J2250; J2405; J3475; J3480; J3490; J7030; J7060; J7131; J7612; Q9964; Q9967